=== PATIENT | male | born 1935 | race Caucasian/White ===

== ENCOUNTER → 2017-12-04 | Outpatient (CLI) | payer MEDICARE ==
[~2017-12-04] MED LIST: AMINOPHYLLINE 250 MG/10 ML VIAL IV ONE; REGADENOSON 0.4 MG/5 ML SYRINGE IV ONE
--- NOTE | 2017-12-04 12:26 | ECHOF ---
Referral Reason:R07.9 Chest pain MEASUREMENTS -------- HEIGHT: 180.3 cm WEIGHT: 62.1 kg BP: IVSd: 1.1 cm (0.6 - 1.1) LVIDd: 5.3 cm (3.9 - 5.3) LVPWd: 1.2 cm (0.6 - 1.1) IVSs: 2.0 cm LVIDs: 3.5 cm LVPWs: 1.7 cm Ao Diam: 3.2 cm (2.0 - 3.7) AV Cusp: 1.4 cm (1.5 - 2.6) LA Diam: 2.7 cm (2.7 - 3.8) MV EXCURSION: 11.800 mm (> 18.000) MV EF SLOPE: 47 mm/s (70 - 150) EPSS: 0.3 cm MV E Casimiro: 0.89 m/s MV DecT: 213 ms MV A Casimiro: 1.10 m/s MV E/A Ratio: 0.81 AV maxP.29 mmHg AV meanP.74 mmHg AR PHT: 718 ms RAP: 5.00 mmHg RVSP: 8.03 mmHg FINDINGS -------- Sinus rhythm. This was a technically difficult study with suboptimal views. The left ventricular size is normal. There is borderline concentric left ventricular hypertrophy. Overall left ventricular systolic function is mildly impaired with, an EF between 45 - 50 %. The right ventricle is normal in size and function. The left atrium is normal in size. The right atrium is normal in size. Lumason used Aortic valve is trileaflet and is moderately thickened. There is mild to moderate aortic regurgitat ion. Mild to moderate aortic stenosis with peak/mean pressure gradient of 21.29mmHg / 13.74mmHg , The mitral valve leaflets are mildly thickened. Mild mitral annular calcification present. Mild m itral regurgitation is present. Mild tricuspid regurgitation present. The right ventricular systolic pressure, as measured by Doppl er, is 8.03mmHg. Pulmonic valve appears structurally normal. The aortic root size is normal. Normal inferior vena cava with normal inspiratory collapse consistent with estimated right atrial pre ssure of 5 mmHg. The pericardium is normal. CONCLUSIONS -------- 1. Sinus rhythm. 2. This was a technically difficult study with suboptimal views. 3. The left ventricular size is normal. 4. There is borderline concentric left ventricular hypertrophy. 5. The right ventricle is normal in size and function. 6. The left atrium is normal in size. 7. The right atrium is normal in size. 8. Lumason used 9. Aortic valve is trileaflet and is moderately thickened. 10. There is mild aortic regurgitation. 11. Mild to moderate aortic stenosis with peak/mean pressure gradient of 21.29mmHg / 13.74mmHg , 12. The mitral valve leaflets are mildly thickened. 13. Mild mitral annular calcification present. 14. Mild mitral regurgitation is present. 15. Mild tricuspid regurgitation present. 16. The right ventricular systolic pressure, as measured by Doppler, is 8.03mmHg. 17. Pulmonic valve appears structurally normal. 18. The aortic root size is normal. 19. Normal inferior vena cava with normal inspiratory collapse consistent with estimated right atrial pressure of 5 mmHg. 20. The pericardium is normal. SPECIALIST PHYSICIANS: Lisa Christy RDCS
--- NOTE | 2017-12-04 12:48 | EST ---
EXERCISE STRESS AGE: 82 SEX: M HT: 70" WT: 130 PROTOCOL: Lexiscan Cardiolite Stress Test HEART RATE REST: 74 BLOOD PRESSURE REST: 137/84 MAXIMUM HEART RATE ACHIEVED: 85 MAXIMUM BLOOD PRESSURE: 150/70 85% MPHR: 117 100% MPHR: 138 INDICATIONS: Chest pain. CLINICAL INFORMATION: Baseline EKG revealed normal sinus rhythm with inferolateral nonspecific ST and T-wave abnormality. Precordial ST-T wave abnormality was also noted and LVH by voltage criteria. With Lexiscan administration heart rate changed from 74-85 beats per minute blood pressure, blood pressure changed from 137/84 to 150/70, and then came back to baseline. Patient had a transient uncomfortable feeling. EKG showed more prominent ST changes, but these are considered inconclusive finding given the resting changes to begin with. By EKG criteria, this is a technically inconclusive stress test with more prominent ST-segment changes without clear-cut symptoms of angina. The nuclear scan results which are more pertinent, will be reported by the radiologist. LONI / JENNIFER: [id number] /
--- NOTE | 2017-12-04 12:53 | NM ---
EXAMINATION TYPE: NM stress lexiscan cardiolite DATE OF EXAM: 12/04/2017 COMPARISON: NONE HISTORY: Chest pain TECHNIQUE: After the intravenous administration of 10.28 mCi Tc 99m Sestamibi - Cardiolite resting S PECT images acquired 60 minutes post injection. The patient received 0.4mg Lexiscan, 25.8 mCi Tc 99m Sestamibi - Stress images obtained [address] injection FINDINGS: Review of stress and rest SPECT images demonstrates several areas of decreased radiopharmaceutical up take on stress and rest images to include the lateral wall, inferior wall, septum, there is some decr eased radiopharmaceutical uptake on stress imaging as compared to rest imaging along the apex and ant erolateral left ventricle. Gated analysis shows normal wall motion with an estimated left ventricular ejection fraction of 27 %. 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 Report relayed to referring clinician office at the time of interpretation.
== END | disposition home or self-care (01) ==
LOC: RADNMMAIN 07:56
PROVIDERS: ATTEND Internal Medicine
DX: R07.9 Chest pain, unspecified (principal)
CPT/HCPCS: 93017; 78452; C8929; A9500; J2785; Q9950; 93306

== ENCOUNTER → 2017-12-25 | Outpatient (CLI) | payer MEDICARE ==
[2017-12-25 09:24] LABS: HCT 39.9 % (39.0-53.0); HGB 13.3 gm/dL (13.0-17.5); MCH 31.4 pg (25.0-35.0); MCHC 33.4 g/dL (31.0-37.0); MCV 93.9 fL (80.0-100.0); Mean Platelet Volume 7.5; Platelet Count 143 k/uL (150-450); RBC 4.25 m/uL (4.30-5.90); RDW 13.8 % (11.5-15.5); WBC 6.1 k/uL (3.8-10.6)
[2017-12-25 09:40] LABS: Potassium 4.5 mmol/L (3.5-5.1)
== END | disposition home or self-care (01) ==
LOC: LABPAT 08:59
PROVIDERS: ATTEND Internal Medicine Interventional Cardiology
DX: Z01.812 Encounter for preprocedural laboratory examination (principal); I25.718 Atherosclerosis of autologous vein coronary artery bypass graft(s) with other forms of angina pectoris; I10 Essential (primary) hypertension
CPT/HCPCS: 36415; 80051; 82565; 82947; 84520; 85027

== ENCOUNTER 2018-01-06 06:08 | Day surgery (SDC) | payer MEDICARE ==
[2017-12-30 09:21] VITALS: BMI 18.6
[~2018-01-06 06:08] MED LIST changes: +ALPRAZolam 0.25 MG TAB PO PRN; +ALPRAZolam 0.5 MG TAB PO PRN; -AMINOPHYLLINE 250 MG/10 ML VIAL IV ONE; +ASPIRIN 325 MG TAB PO STA; +ATORVASTATIN 80 MG TAB PO STA; +NITROGLYCERIN SL TABS 0.4 MG TAB SUBLINGUAL PRN; -REGADENOSON 0.4 MG/5 ML SYRINGE IV ONE; +SODIUM CHLORIDE 0.9% 1,000 ML in EMPTY BAG 1 BAG IV ONE
[2018-01-06 06:38] VITALS: PULSE 72; TEMP 97.6
[2018-01-06 06:59] LABS: Basophils % (A) 0 %; Eosinophils # (A) 0.2 k/uL (0-0.7); Eosinophils % (A) 4 %; HCT 38.4 % (39.0-53.0); HGB 12.9 gm/dL (13.0-17.5); Lymphocytes # (A) 1.2 k/uL (1.0-4.8); Lymphocytes % (A) 18 %; MCH 30.9 pg (25.0-35.0); MCHC 33.5 g/dL (31.0-37.0); MCV 92.1 fL (80.0-100.0); Mean Platelet Volume 7.2; Monocytes # (A) 0.5 k/uL (0-1.0); Monocytes % (A) 7 %; Neutrophils # (A) 4.5 k/uL (1.3-7.7); Neutrophils % (A) 69 %; Platelet Count 161 k/uL (150-450); RBC 4.17 m/uL (4.30-5.90); RDW 13.4 % (11.5-15.5); WBC 6.5 k/uL (3.8-10.6)
[2018-01-06] MEDS ORDERED: SODIUM CHLORIDE 0.9% 1,000 ML IV ONE (07:25)
[2018-01-06] MEDS ORDERED: diphenhydrAMINE 50 MG/ML 1 ML VIAL IVP ONE (07:26)
[2018-01-06] MEDS ORDERED: LIDOCAINE 1% INJ 10MG/ML (20 ML MDV) SQ ONE (07:27)
[2018-01-06] MEDS ORDERED: IOPAMIDOL-370 100ML BTL INJ ONE ×2 (07:43→07:56)
[2018-01-06] MEDS ORDERED: RX INFO: IV CONTRAST WAS GIVEN 1 EACH MISC MISCELLANE PRN (08:29)
[2018-01-06] MEDS ORDERED: SODIUM CHLORIDE 0.9% 1,000 ML IV SCH (08:30)
--- NOTE | 2018-01-06 09:12 | CC ---
CARDIAC CATHETERIZATION REPORT DATE OF SERVICE: 01/06/2018 PROCEDURE: Left heart catheterization, selective coronary angiography, selective injection of bypass grafts. PERFORMED BY: Dr. Sully Triplett. Moderate conscious sedation time was 35 minutes. Patient was administered Benadryl and Versed and oxygen saturation, hemodynamics and EKG were monitored closely. CLINICAL INFORMATION: Mr. Sunil Pereira is an 82-year-old gentleman with a known history of hypertension, hypercholesterolemia and CAD. In 1993, he underwent aortocoronary bypass surgery with WONG to LAD and 3 separate vein grafts to the obtuse marginal branch of circumflex, PLV branch of circumflex and PDA branch of circumflex. In 2010, these vein grafts and WONG were patent and his [place] vessels were occluded. He was advised medical therapy. Because of increasing anginal symptoms and a positive stress test, he was advised coronary angiography. Risks, benefits, options, rationale were explained to the patient and family including his daughter. PROCEDURE NOTE: Under local anesthesia and strict aseptic precautions, a 6-Bulgarian introducer was placed in the right femoral artery. I used a standard left Radha catheter for selective coronary angiography of the left coronary artery and a Orquidea catheter for the right coronary artery. The same Orquidea catheter was used to perform selective coronary angiography of the obtuse marginal graft, PDA graft, and I used a AR1 catheter for the PLV graft. These were 3 grafts placed with circumflex branches. I used a Orquidea catheter for the WONG injection. LV pressures were checked with a pigtail catheter but LV gram was not performed. Manual pressure was used to secure hemostasis and patient was sent to the room in a stable condition. CARDIAC CATHETERIZATION FINDINGS: The left ventricle end-diastolic pressure was about 8 to 9 mmHg. There was a gradient of about 10 to 15 mmHg across aortic valve on a pullback gradient. CORONARY ANGIOGRAPHY FINDINGS: RIGHT CORONARY ARTERY: This vessel is totally occluded other than a conus branch that seems to go back and gives some collaterals to the LAD distribution. RCA is totally occluded. LEFT MAIN CORONARY ARTERY: This vessel is calcified and totally occluded without much antegrade flow. SAPHENOUS VEIN GRAFT TO THE OBTUSE MARGINAL BRANCH OF CIRCUMFLEX: This graft is widely patent at its origin, course and insertion site. Just beyond insertion there is a 90% stenosis within the obtuse marginal branch. Beyond the insertion the vessel is of fairly decent caliber. This appears to be the culprit lesion for ischemia based on his stress test. SAPHENOUS VEIN GRAFT TO THE PLV BRANCH OF CIRCUMFLEX: This graft is widely patent at its origin. The ostium seems to have about a 40% lesion. Body of the graft is very good. Distally, the insertion site is good and the PLV branch is of good caliber and distribution. The ostium of this PLV graft has about a 40% lesion, but the flow is good. SAPHENOUS VEIN GRAFT TO THE PDA BRANCH OF CIRCUMFLEX: This graft at its origin is free of significant disease. Body is free of significant disease. At the insertion site, there is about a 40% to 50% narrowing, but the flow is brisk. Overall, the blood flow to the PDA appears to be fairly decent. There are 2 branches after insertion site, the superior branch has good flow and the inferior branch has somewhat sluggish flow, but overall flow is acceptable. LEFT INTERNAL MAMMARY ARTERY GRAFT TO LAD: This graft is widely patent at its origin, course and insertion site and the entire LAD is opacified has mild diffuse disease. LEFT VENTRICULOGRAM: This was not performed. FINAL IMPRESSION: This patient has a total occlusion of his [place] vessels. There is a small conus branch of RCA that opacifies some branches of the LAD. The filling pressures are normal and there is a 10 to 15 mm gradient across aortic valve. The vein graft to the obtuse marginal has a 95% stenosis just beyond the insertion site. The vein graft to the PLV branch of circumflex is widely patent with good flow. The vein graft to the PDA branch of circumflex has some distal disease of 40% to 50% but overall flow is acceptable. The WONG to LAD is widely patent with some diffuse disease in LAD. RECOMMENDATIONS: One of the options in this elderly gentleman appears to be medical therapy. Since there is only one graft involved, we can pursue medical therapy as an option. The other option would be to do intervention of the vein graft to the obtuse marginal, which would be a percutaneous intervention and this would be associated with a high risk since the graft is 24 years old. This discussion will happen during his office visit in the next few days. Patient will be discharged later on today and I will discuss options of medical therapy versus PCI with the patient and family. He will be discharged later on today. MMODL / IJN: [id number] /
[2018-01-06 13:28] VITALS: RESP 18
[2018-01-06] MEDS ORDERED: NITROGLYCERIN SL TABS 0.4 MG TAB SUBLINGUAL STA (14:52)
[2018-01-06] MEDS ORDERED: amLODIPine 5 MG TAB PO STA (14:53)
[2018-01-06 16:16] VITALS: BP 158/72
== END 2018-01-06 16:05 | disposition home or self-care (01) ==
LOC: CATHCVL 06:08
PROVIDERS: ATTEND Internal Medicine Interventional Cardiology
DX: I25.710 Atherosclerosis of autologous vein coronary artery bypass graft(s) with unstable angina pectoris (principal); I25.82 Chronic total occlusion of coronary artery; R92.8 Other abnormal and inconclusive findings on diagnostic imaging of breast; E78.5 Hyperlipidemia, unspecified; I10 Essential (primary) hypertension; E78.00 Pure hypercholesterolemia, unspecified; I35.0 Nonrheumatic aortic (valve) stenosis; Z79.899 Other long term (current) drug therapy; Z79.82 Long term (current) use of aspirin; Z88.0 Allergy status to penicillin; Z95.1 Presence of aortocoronary bypass graft
CPT/HCPCS: 93458; 85025; C1894; C1769 ×2; J1200; J2001; Q9967

== ENCOUNTER → 2018-01-13 | Outpatient (CLI) | payer MEDICARE ==
[2018-01-13 12:37] LABS: Potassium 4.3 mmol/L (3.5-5.1)
== END | disposition home or self-care (01) ==
LOC: LABPAT 11:30
PROVIDERS: ATTEND Internal Medicine Interventional Cardiology
DX: Z01.812 Encounter for preprocedural laboratory examination (principal); I10 Essential (primary) hypertension; I25.718 Atherosclerosis of autologous vein coronary artery bypass graft(s) with other forms of angina pectoris
CPT/HCPCS: 80051; 82565; 84520

== ENCOUNTER 2018-01-27 07:57 | Day surgery (SDC) | payer MEDICARE ==
[2018-01-21 09:44] VITALS: BMI 19.6
[~2018-01-27 07:57] MED LIST changes: -NITROGLYCERIN SL TABS 0.4 MG TAB SUBLINGUAL PRN
[2018-01-27] MEDS ORDERED: LIDOCAINE 1% INJ 10MG/ML (20 ML MDV) ONE (09:08)
[2018-01-27] MEDS ORDERED: MIDAZOLAM 2 MG/2 ML VIAL ONE (09:10)
[2018-01-27] MEDS ORDERED: diphenhydrAMINE 50 MG/ML 1 ML VIAL ONE (09:10)
[2018-01-27] MEDS ORDERED: IV FLUID CONTINUATION 1,000 ML IV ONE (09:22)
[2018-01-27] MEDS ORDERED: MIDAZOLAM 2 MG/2 ML VIAL IVP ONE (09:39)
[2018-01-27] MEDS ORDERED: LIDOCAINE 1% INJ 10MG/ML (20 ML MDV) SQ ONE (09:40)
[2018-01-27] MEDS ORDERED: diphenhydrAMINE 50 MG/ML 1 ML VIAL IVP ONE (09:40)
[2018-01-27] MEDS ORDERED: NITROGLYCERIN SL TABS 0.4 MG TAB SUBLINGUAL ONE ×2 (09:46→09:47)
[2018-01-27] MEDS ORDERED: BIVALIRUDIN BOLUS 250 MG/50 ML IV ONE (09:51)
[2018-01-27] MEDS ORDERED: BIVALIRUDIN 250 MG in SODIUM CHLORIDE 0.9% 50 ML IV ONE (09:51)
[2018-01-27] MEDS ORDERED: IOPAMIDOL-370 100ML BTL INJ ONE ×2 (10:07→10:27)
[2018-01-27] MEDS ORDERED: NITROGLYCERIN 1000MCG/10ML SYRINGE INTRACORON ONE ×2 (10:15→10:20)
[2018-01-27] MEDS ORDERED: CLOPIDOGREL 75 MG TAB ONE (10:22)
[2018-01-27] MEDS ORDERED: CLOPIDOGREL 75 MG TAB PO ONE (10:27)
[2018-01-27] MEDS ORDERED: NITROGLYCERIN SL TABS 0.4 MG TAB SUBLINGUAL PRN (10:43)
[2018-01-27] MEDS ORDERED: MAG HYDROX/AL HYDROX/SIMETH 30 ML CUP PO PRN (10:43)
[2018-01-27] MEDS ORDERED: ATROPINE SULFATE 0.1 MG/ML 10ML SYRINGE IV PRN (10:43)
[2018-01-27] MEDS ORDERED: ZOLPIDEM 5 MG TAB PO PRN (10:43)
[2018-01-27] MEDS ORDERED: RX INFO: IV CONTRAST WAS GIVEN 1 EACH MISC MISCELLANE PRN (10:43)
[2018-01-27] MEDS: SODIUM CHLORIDE 0.9% 1,000 ML IV SCH ×2 (11:16→23:40)
--- NOTE | 2018-01-27 12:06 | PTCA ---
PERCUTANEOUSTRANS CORORONARY ANGIOGRAPHY DATE OF SERVICE: 01/27/2018. PROCEDURE: PTCA and stenting of circumflex marginal at the insertion site and beyond the vein graft. Drug-eluting stent was used. Moderate conscious sedation time was 45 minutes. The patient was administered a combination of Versed and Benadryl. His oxygen saturation, hemodynamics and EKG were monitored closely. CLINICAL INFORMATION: Mr. Sunil Pereira is an 82-year-old gentleman with a history of hypertension, hypercholesterolemia who underwent aortocoronary bypass surgery in 1993 with a WONG to LAD, vein graft to the circumflex obtuse marginal and another one to the posterolateral branch of circumflex and then PDA branch of circumflex. All 3 were separate vein grafts. Because of the abnormal stress test and increasing symptoms suggestive of angina, he underwent a cardiac cath that was performed by me on 01/06/2018 which revealed that the vein graft to the obtuse marginal had a 95% stenosis. The PLV graft was patent. The PDA graft had a moderate 40% to 50% lesion. WONG to LAD was patent with diffuse disease in the [place] vessel. A total occlusion of the [place] vessels was noted. He had a mild gradient of less than 15 mmHg across the aortic valve. He was advised intervention of the vein graft to the obtuse marginal and brought in for the procedure electively. PROCEDURE NOTE: Under local anesthesia and strict aseptic precautions, a 6-Tamazight introducer was placed in the right femoral artery. I used a left coronary bypass guide catheter to cannulate the vein graft to the obtuse marginal. A whisper wire was used to cross the lesion. Predilatation was performed using a 2.25 caliber 12 mm long NC Trek balloon initially and then I switched over to a 2.5 caliber NC Trek balloon of 12 mm length. Inflations up to 14 atmospheres were given. There was a modest improvement. However, there was still a tight area noted. I then deployed a 12 mm long 2.75 caliber Xience stent at 15 atmospheres. Excellent angiographic result was achieved without complication. Distal to the stented area, there was initially spasm which resolved with administration of nitroglycerin. Excellent angiographic result without complication was achieved. Patient received Angiomax bolus and infusion as per protocol. He received 600 mg of Plavix orally. The sheath was sutured and he was sent to the room in a stable condition. ASSESSMENT: From a pre-PTCA stenosis of 95% after stenting the residual stenosis is 0% with remarkable improvement in angiographic appearance and flow. There was no evident complication noted. LONI / MERCEDEZN: [id number] /
--- NOTE | 2018-01-27 12:12 | LTR ---
January 27, [address] Mustafa: Thank you for the opportunity to participate in the care of Mr. Pereira. This gentleman had an excellent angiographic result. I used a drug-eluting Xience stent of 2.75 caliber. Excellent angiographic result was achieved and I expect he will be discharged tomorrow if he remains stable. Thank you for your referral and please call for questions. With kindest regards. Sincerely yours, MD LONI Rodriguez / JENNIFER: [id number] /
[2018-01-27] MEDS: METOPROLOL TARTRATE 25 MG TAB PO SCH (12:23)
[2018-01-27] MEDS ORDERED: ATROPINE SULFATE 0.1 MG/ML 10ML SYRINGE ONE (12:58)
[2018-01-27] MEDS ORDERED: MORPHINE SULFATE 2 MG/ML SYRINGE IVP STA (13:26)
[2018-01-27] MEDS: NITROGLYCERIN SL TABS 0.4 MG TAB SUBLINGUAL PRN ×2 (13:30→23:10)
[2018-01-27] MEDS: ISOSORBIDE MONONITRATE ER 30 MG TAB.ER.24H PO SCH (17:03)
[2018-01-27] MEDS ORDERED: ATORVASTATIN 40 MG TAB PO SCH (21:00)
--- NOTE | 2018-01-27 21:30 | P.GSCN ---
History of Present Illness Consult date: 01/27/18 Reason for Consult: Urinary retention and inability to insert urethral catheter History of present illness: The patient is an 82 year old male with coronary artery disease who underwent PTCA with stent placement earlier today. The patient has been unable to void since the procedure. He has a history of chronic urinary retention and usually performs self-catheterization 4 times a day with a 16 Georgian catheter. He was unable to sit up in bed to perform self-catheterization after his coronary procedure. Attempts were made by the nurses to insert a catheter but this proved to be unsuccessful. I was asked to see the patient for the purpose of catheter placement. The patient is well known to me and was last seen by me approximately 1 month ago. He has a hypotonic bladder and has been unable to empty his bladder completely despite a previous TURP. As previously noted he usually performs self-catheterization 4 times a day without difficulty. Review of Systems - Constitutional Denies chills - Cardiovascular Denies chest pain, Denies shortness of breath - Gastrointestinal Denies abdominal pain - Genitourinary Reports as per HPI Past Medical History Past Medical History: Chest Pain / Angina, GERD/Reflux, Hyperlipidemia, Hypertension, Prostate Disorder Additional Past Medical History / Comment(s): self catheterization, constipation , states fell recently and scraped leg History of Any Multi-Drug Resistant Organisms: None Reported Past Surgical History: Coronary Bypass/CABG, Heart Catheterization, Prostate Surgery (TURP) Additional Past Surgical History / Comment(s): left endarterectomy, CABG 1994, heart cath 01/06/18 Past Anesthesia/Blood Transfusion Reactions: No Reported Reaction Past Psychological History: Depression Smoking Status: Never smoker Past Alcohol Use History: Rare Past Drug Use History: None Reported - Past Family History Father Family Medical History: Diabetes Mellitus Mother Family Medical History: No Reported History Medications and Allergies Home Medications Medication Instructions Recorded Confirmed Type Aspirin [Adult Low Dose Aspirin EC] 162 mg PO QAM 12/30/17 01/21/18 History Nitroglycerin Sl Tabs [Nitrostat] 0.4 mg SUBLINGUAL Q5M PRN 12/30/17 01/21/18 History Tamsulosin [Flomax] 0.4 mg PO QAM 12/30/17 01/21/18 History Magnesium(Dose Unknown) 1 tab PO DAILY 01/21/18 01/21/18 History Rosuvastatin Calcium [Crestor] 5 mg PO DAILY 01/21/18 01/21/18 History Ubidecarenone [Co Q-10] 200 mg PO DAILY 01/21/18 01/21/18 History Vitamin C(Dose Unknown) 1 tab PO DAILY 01/21/18 01/21/18 History Vitamin D3(Dose Unknown) 1 tab PO DAILY 01/21/18 01/21/18 History Isosorbide Mononitrate ER [Imdur] 30 mg PO DAILY 01/27/18 01/27/18 History Allergies Allergy/AdvReac Type Severity Reaction Status Date / Time Penicillins Allergy Unknown Verified 01/21/18 09:31 Surgical - Exam Vital Signs Temp Pulse Resp BP Pulse Ox 97.9 F 78 20 175/72 98 01/27/18 09:00 01/27/18 09:00 01/27/18 09:00 01/27/18 09:00 01/27/18 09:00 - General well developed, well nourished - Respiratory normal respiratory effort - Abdomen Abdomen: soft, non tender Hernia: none - Genitourinary normal penis with no external lesions, testicles non-tender A compression device was present in the right groin at the site of the angioplasty access. Assessment and Plan (1) Urinary retention with incomplete bladder emptying Narrative/Plan: Following my examination I was able to insert a 14 Georgian coud catheter through the urethra and into the bladder, although the it was initially not easily. There was blood present at the urethral meatus prior to the procedure and I suspect that the patient had some trauma within the prostatic urethra as he apparently had a Myrick catheter balloon inflated in this area during a previous catheter placement attempt. Relatively clear urine drained from the bladder. I would suggest leaving the catheter in place until after the weekend. The patient's daughters a nurse and can remove it Thursday morning. The patient will then resume intermittent catheterization 4 times a day. Current Visit: Yes Status: Acute Code(s): R33.9 - RETENTION OF URINE, UNSPECIFIED SNOMED Code(s): 567715674
[2018-01-27] MEDS ORDERED: amLODIPine 10 MG TAB PO STA (23:04)
[2018-01-28] MEDS: ACETAMINOPHEN TAB 325 MG TAB PO PRN ×2 (00:48→06:04)
[2018-01-28] MEDS ORDERED: risperiDONE 0.25 MG TAB PO STA (02:03)
[2018-01-28 02:38] LABS: Basophils % (A) 0 %; Eosinophils # (A) 0.1 k/uL (0-0.7); Eosinophils % (A) 1 %; HCT 40.8 % (39.0-53.0); HGB 13.5 gm/dL (13.0-17.5); Lymphocytes # (A) 0.9 k/uL (1.0-4.8); Lymphocytes % (A) 9 %; MCV 93.9 fL (80.0-100.0); Mean Platelet Volume 7.2; Monocytes # (A) 0.6 k/uL (0-1.0); Monocytes % (A) 7 %; Neutrophils % (A) 82 %; Platelet Count 155 k/uL (150-450); RBC 4.34 m/uL (4.30-5.90); RDW 13.5 % (11.5-15.5); WBC 9.8 k/uL (3.8-10.6)
[2018-01-28 02:53] LABS: Anion Gap 10 mmol/L; Blood Urea Nitrogen 26 mg/dL (9-20); Calcium 9.2 mg/dL (8.4-10.2); Carbon Dioxide 21 mmol/L (22-30); Chloride 108 mmol/L (98-107); Glucose 109 mg/dL (74-99); Potassium 4.3 mmol/L (3.5-5.1); Sodium 139 mmol/L (137-145)
[2018-01-28 06:53] LABS: Basophils % (A) 0 %; Eosinophils # (A) 0.1 k/uL (0-0.7); Eosinophils % (A) 1 %; HCT 39.3 % (39.0-53.0); HGB 13.2 gm/dL (13.0-17.5); Lymphocytes # (A) 0.8 k/uL (1.0-4.8); Lymphocytes % (A) 9 %; MCH 31.4 pg (25.0-35.0); MCHC 33.6 g/dL (31.0-37.0); MCV 93.3 fL (80.0-100.0); Mean Platelet Volume 7.7; Monocytes # (A) 0.5 k/uL (0-1.0); Monocytes % (A) 6 %; Neutrophils # (A) 7.5 k/uL (1.3-7.7); Neutrophils % (A) 84 %; Platelet Count 164 k/uL (150-450); RBC 4.21 m/uL (4.30-5.90); RDW 13.3 % (11.5-15.5)
[2018-01-28 07:54] VITALS: BP 137/72; PULSE 85; RESP 15; TEMP 97.1
[2018-01-28] MEDS: METOPROLOL TARTRATE 25 MG TAB PO SCH (07:55)
[2018-01-28] MEDS: ISOSORBIDE MONONITRATE ER 30 MG TAB.ER.24H PO SCH (07:55)
--- NOTE | 2018-01-28 08:04 | DS ---
DISCHARGE SUMMARY DATE OF ADMISSION: 01/27/2018. DATE OF DISCHARGE: 01/28/2018. DIAGNOSES: 1. Unstable angina. 2. Hypertension. 3. Hypercholesterolemia. 4. Dementia. Mr. Pereira was brought into the hospital for an elective PCI of a vein graft to the obtuse marginal branch of circumflex. He underwent aortocoronary bypass surgery in 1993 and recent cardiac cath from January 06 revealed that the vein graft to OM 1 had a significant lesion at isertion site and immediately after the insertion site into the obtuse marginal. His WONG and 2 other vein grafts were patent with fairly decent flow. The patient was brought in for the procedure electively. PCI of the vein graft was performed with excellent angiographic result. Postprocedure course was complicated by some oozing from the right groin area and patient also had some issues with urinary retention requiring a Myrick catheter after which he had pain and the blood pressure went up quite a bit. Blood pressure control was accomplished. The patient had some dementia, required some soft restraints through the night for an hour or so. However, this morning is quite lucid and he does not have a good memory of what happened in the night. According to the who was here with him, patient does have these issues at home from time to time. However, from a cardiac standpoint, he is asymptomatic. No chest pain. His right groin is clean and dry with a good pulse. It is quite soft. Hemoglobin, BUN, creatinine are good. EKG does not reveal any acute changes. I have advised them to resume most of the medications including a beta [place]. Patient will be discharged today and he has an appointment to see me on Thursday. Discharge instructions regarding activity, diet and medications were given. Physical exam revealed a blood pressure of 132/70, pulse rate is 80 per minute. There is no JVD or carotid bruit. S1, S2 heard normally with a short systolic murmur. Lungs are clear. Abdomen is soft. Right groin is clean and dry with a good pulse. Lower extremities reveal palpable pulses. No edema. Central nervous system grossly no focal deficits. Patient will be discharged today after okayed by Urology with regards to the Myrick catheter which has been placed yesterday. The patient usually does self cathing at home. We will call and check with Dr. Toth if the patient can be discharged without the Myrick and he can do the self cath that he was doing at home or should he leave the Myrick on until he sees him early next week. This will be clarified by a phone call to Dr. Toth by the nurses. I saw the patient, talked to the gave them discharge instructions myself and importance of dual antiplatelet therapy. LONI / JENNIFER: [id number] / MTDD
[2018-01-28] MEDS ORDERED: CLOPIDOGREL 75 MG TAB PO SCH (09:00)
[2018-01-28] MEDS ORDERED: ASPIRIN 81 MG PO SCH ×2 (09:00)
[2018-01-28] MEDS ORDERED: TAMSULOSIN 0.4 MG CAP.ER.24H PO SCH ×2 (09:00→21:00)
[2018-01-28] MEDS ORDERED: MAGNESIUM OXIDE 400 MG TAB PO SCH (09:00)
== END 2018-01-28 10:06 | disposition home or self-care (01) ==
LOC: CATHCVL 07:57 → 6SEL 10:20 → CATHCVL 01-28 10:06
PROVIDERS: ATTEND Internal Medicine Interventional Cardiology
DX: I25.719 Atherosclerosis of autologous vein coronary artery bypass graft(s) with unspecified angina pectoris (principal); I25.119 Atherosclerotic heart disease of native coronary artery with unspecified angina pectoris; I25.82 Chronic total occlusion of coronary artery; I35.0 Nonrheumatic aortic (valve) stenosis; I10 Essential (primary) hypertension; E78.00 Pure hypercholesterolemia, unspecified; Z95.1 Presence of aortocoronary bypass graft; N31.2 Flaccid neuropathic bladder, not elsewhere classified; Z95.5 Presence of coronary angioplasty implant and graft; E78.5 Hyperlipidemia, unspecified; Z88.0 Allergy status to penicillin; Z79.82 Long term (current) use of aspirin; K21.9 Gastro-esophageal reflux disease without esophagitis; R33.9 Retention of urine, unspecified; Z90.79 Acquired absence of other genital organ(s); Z79.899 Other long term (current) drug therapy
CPT/HCPCS: 80048; 85025; C9604; C1769 ×4; C1887; C1725 ×2; C1894; C1874; J2250; J1200; J2001; J2270; J0583; Q9967

== ENCOUNTER → 2018-07-23 | Outpatient (CLI) | payer MEDICARE ==
[2018-07-23 14:35] LABS: Basophils % (A) 0 %; Eosinophils # (A) 0.1 k/uL (0-0.7); Eosinophils % (A) 2 %; HCT 35.9 % (39.0-53.0); HGB 11.8 gm/dL (13.0-17.5); Lymphocytes # (A) 1.1 k/uL (1.0-4.8); Lymphocytes % (A) 18 %; MCH 31.9 pg (25.0-35.0); MCV 96.5 fL (80.0-100.0); Mean Platelet Volume 7.4; Monocytes # (A) 0.5 k/uL (0-1.0); Monocytes % (A) 9 %; Neutrophils # (A) 3.9 k/uL (1.3-7.7); Neutrophils % (A) 68 %; Platelet Count 150 k/uL (150-450); RBC 3.72 m/uL (4.30-5.90); RDW 13.6 % (11.5-15.5); WBC 5.8 k/uL (3.8-10.6)
[2018-07-23 18:54] LABS: Albumin 4.1 g/dL (3.80-4.90); Albumin/Globulin Ratio 1.86 (1.60-3.17); Anion Gap 6.9 mmol/L (4.00-12.00); Calcium 9.2 mg/dL (8.7-10.3); Carbon Dioxide 25.1 mmol/L (21.6-31.8); Globulin 2.2 g/dL (1.6-3.3); LDL Cholesterol,Calculated 49.2 mg/dL (0.0-131.0); Potassium 5.8 mmol/L (3.5-5.5); Total Bilirubin 0.7 mg/dL (0.3-1.2); Total Protein 6.3 g/dL (6.2-8.2); VLDL Calculation 11.8 mg/dL (5.00-40.00)
[2018-07-23 19:02] LABS: T4, Free (Free Thyroxine) 1.2 ng/dL (0.80-1.80)
[2018-07-23 22:30] LABS: Hemoglobin A1C 6.3 % (4.0-6.0)
== END ==
LOC: LABWHC1 12:19
PROVIDERS: ATTEND Internal Medicine Geriatric Medicine
DX: I25.799 Atherosclerosis of other coronary artery bypass graft(s) with unspecified angina pectoris (principal); R73.9 Hyperglycemia, unspecified; R00.1 Bradycardia, unspecified
CPT/HCPCS: 36415; 80053; 80061; 83036; 84439; 84443; 85025

== ENCOUNTER 2018-09-26 19:56 | Inpatient (IN) | payer MEDICARE ==
[2018-09-26] MEDS ORDERED: ASPIRIN 81 MG PO STA (20:23)
--- NOTE | 2018-09-26 20:31 | ED ---
General Adult HPI - General Source: patient Mode of arrival: wheelchair Limitations: no limitations <Grabiel Hernandez D - Last Filed: 09/26/18 20:55> <Wanda Vasquez P - Last Filed: 09/26/18 22:11> - General Chief complaint: Chest Pain Stated complaint: CP Time Seen by Provider: 09/26/18 20:05 - History of Present Illness Initial comments: Dictation was produced using [email or web address] dictation software. please excuse any grammatical, word or spelling errors. Chief Complaint: 82-year-old male with multiple comorbidities presents with chief complaint of chest pain. History of Present Illness: 82-year-old male presents chief complaint chest pain. Patient states he was having dinner when he began having these symptoms. Patient takes that he might have eaten too much. States the pain is substernal and sharp. States that he took 2 sublingual nitroglycerin with improvement of his symptoms. He states his symptoms lasted for several minutes. Patient denies any exacerbating or mitigating maneuvers. Patient has positive cardiac history. Recently patient was admitted to the hospital where he had cardiac catheterization and intervention performed. Currently he reports being asymp tomatic. The ROS documented in this emergency department record has been reviewed and confirmed by me. Those systems with pertinent positive or negative responses have been documented in the HPI. All other systems are other negative and/or noncontributory. PHYSICAL EXAM: General Impression: Alert and oriented x3, not in acute distress HEENT: Normocephalic atraumatic, extra-ocular movements intact, pupils equal and reactive to light bilaterally, mucous membranes moist. Cardiovascular: Heart regular rate and rhythm, S1&S2 audible, no murmurs, rubs or gallops Chest: Lungs clear to auscultation bilaterally, no rhonchi, no wheeze, no rales Abdomen: Bowel sounds present, abdomen soft, non-tender, non-distended, no organomegaly Musculoskeletal: Pulses present and equal in all extremities, no peripheral edema Motor: no focal deficits noted Neurological: CN II-XII grossly intact, no focal motor or sensory deficits noted Skin: Intact with no visualized rashes Psych: Normal affect and mood ED course: 82-year-old male presents with chief complaint of chest pain. Patient's HPI sounds slightly atypical. All signs upon arrival are within acceptable limits. EKG is worrisome with multiple ST depressions present in the precordial leads. EKG was compared to EKG from November 27 of this year with no changes. Patient is asymptomatic at this time. Patient care is signed out to Dr. Vasquez. EKG interpretation: Ventricular rate 85, sinus rhythm,. Interval 194, care is 86, QTC 456. ST depressions in precordial leads. (Grabiel Hernandez) - Related Data Home Medications Medication Instructions Recorded Confirmed Aspirin [Adult Low Dose Aspirin EC] 81 mg PO DAILY 12/30/17 09/26/18 Magnesium(Dose Unknown) 1 tab PO DAILY 01/21/18 09/26/18 Ubidecarenone [Co Q-10] 200 mg PO DAILY 01/21/18 09/26/18 Vitamin C(Dose Unknown) 1 tab PO DAILY 01/21/18 09/26/18 Vitamin D3(Dose Unknown) 1 tab PO DAILY 01/21/18 09/26/18 Isosorbide Mononitrate ER [Imdur] 30 mg PO DAILY 01/27/18 09/26/18 Metoprolol Succinate (ER) [Toprol 25 mg PO DAILY 06/29/18 09/26/18 XL] Esomeprazole Magnesium [NexIUM] 40 mg PO DAILY 09/26/18 09/26/18 Previous Rx's Medication Instructions Recorded Atorvastatin [Lipitor] 40 mg PO HS #90 tab 01/28/18 Clopidogrel [Plavix] 75 mg PO DAILY #90 tab 01/28/18 Nitroglycerin Sl Tabs [Nitrostat] 0.4 mg SUBLINGUAL Q5M PRN #25 tab 01/28/18 Tamsulosin [Flomax] 0.4 mg PO HS #0 01/28/18 Lisinopril [Zestril] 5 mg PO DAILY #30 tab 07/01/18 Ranolazine [Ranexa] 500 mg PO BID #60 tab 07/01/18 Spironolactone [Aldactone] 25 mg PO DAILY #30 tab 07/01/18 Allergies Allergy/AdvReac Type Severity Reaction Status Date / Time Penicillins Allergy Rash/Hives Verified 09/26/18 21:04 Review of Systems ROS Other: All systems not noted in ROS Statement are negative. <Grabiel Hernandez - Last Filed: 09/26/18 20:55> ROS Other: All systems not noted in ROS Statement are negative. <Wanda Vasquez - Last Filed: 09/26/18 22:11> ROS Statement: Those systems with pertinent positive or pertinent negative responses have been documented in the HPI. 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 History of Any Multi-Drug Resistant Organisms: None Reported Past Surgical History: Coronary Bypass/CABG, Heart Catheterization, Heart Catheterization With Stent, Prostate Surgery Additional Past Surgical History / Comment(s): left endarterectomy, CABG 1994, 2017 Past Anesthesia/Blood Transfusion Reactions: No Reported Reaction Date of Last Stent Placement:: 2017 Past Psychological History: Depression Smoking Status: Never smoker Past Alcohol Use History: Rare Past Drug Use History: None Reported - Past Family History Father Family Medical History: Diabetes Mellitus Mother Additional Family Medical History / Comment(s): heart problems <Grabiel Hernandez - Last Filed: 09/26/18 20:55> General Exam Limitations: no limitations <Grabiel Hernandez - Last Filed: 09/26/18 20:55> Course Vital Signs 09/26/18 09/26/18 19:57 22:02 Temperature 98.1 F Pulse Rate 94 76 Respiratory 18 16 Rate Blood Pressure 124/98 139/77 O2 Sat by Pulse 100 99 Oximetry Medical Decision Making - Lab Data Result diagrams: 09/26/18 20:35 <Grabiel Hernandez - Last Filed: 09/26/18 20:55> - Lab Data Result diagrams: 09/26/18 20:35 09/26/18 20:35 <Wanda Vaqsuez - Last Filed: 09/26/18 22:11> - Medical Decision Making to care was signed out to me by Dr. MACIAS. This is an 82-year-old woman who presented with chest pain which developed after dinner he was concerned he may have eaten too much however EKGs concerning for ischemia as there are ST depressions. At the time of sign out a cardiac workup was pending. Chest x-ray was unremarkable. Labs did result with a mildly elevated troponin. Patient then developed recurrent chest pain radiating to his right chest and right shoulder. Repeat EKG obtained at 2146, rate is 85 rhythm is sinus with a first-degree AV block, there is a normal axis, there is prolonged at 220, QRS is 86 QTc is 442 there are T-wave inversions and ST depression in V2-5 ST elevation of only 1 mm in aVR. Again this EKG for ischemia but no acute infarct. Heparin was ordered, however patient is on aspirin and Plavix at home for a bolus was held. Nitropaste was ordered. Patient care discussed with Dr. Hennessy, patient to be admitted per ACS protocol for NSTEMI (Wanda Vasquez) - Lab Data Lab Results 09/26/18 09/26/18 09/26/18 Range/Units 20:35 20:35 20:35 WBC 7.6 (3.8-10.6) k/uL RBC 3.28 L (4.30-5.90) m/uL Hgb 10.6 L (13.0-17.5) gm/dL Hct 31.5 L (39.0-53.0) % MCV 96.1 (80.0-100.0) fL MCH 32.4 (25.0-35.0) pg MCHC 33.7 (31.0-37.0) g/dL RDW 14.2 (11.5-15.5) % Plt Count 164 (150-450) k/uL Neutrophils % 83 % Lymphocytes % 10 % Monocytes % 5 % Eosinophils % 1 % Basophils % 0 % Neutrophils # 6.3 (1.3-7.7) k/uL Lymphocytes # 0.7 L (1.0-4.8) k/uL Monocytes # 0.3 (0-1.0) k/uL Eosinophils # 0.1 (0-0.7) k/uL Basophils # 0.0 (0-0.2) k/uL PT 10.6 (9.0-12.0) sec INR 1.0 (<1.2) APTT 21.5 L (22.0-30.0) sec Sodium 142 (137-145) mmol/L Potassium 4.5 (3.5-5.1) mmol/L Chloride 110 H (98-107) mmol/L Carbon Dioxide 21 L (22-30) mmol/L Anion Gap 11 mmol/L BUN 53 H (9-20) mg/dL Creatinine 1.51 H (0.66-1.25) mg/dL Est GFR (CKD-EPI)AfAm 49 (>60 ml/min/1.73 sqM) Est GFR (CKD-EPI)NonAf 43 (>60 ml/min/1.73 sqM) Glucose 188 H (74-99) mg/dL Calcium 9.5 (8.4-10.2) mg/dL Magnesium 2.0 (1.6-2.3) mg/dL Total Bilirubin 0.5 (0.2-1.3) mg/dL AST 46 (17-59) U/L ALT 53 (21-72) U/L Alkaline Phosphatase 56 (38-126) U/L Troponin I (0.000-0.034) ng/mL Total Protein 6.7 (6.3-8.2) g/dL Albumin 4.0 (3.5-5.0) g/dL Lipase 190 (23-300) U/L 09/26/18 Range/Units 20:35 WBC (3.8-10.6) k/uL RBC (4.30-5.90) m/uL Hgb (13.0-17.5) gm/dL Hct (39.0-53.0) % MCV (80.0-100.0) fL MCH (25.0-35.0) pg MCHC (31.0-37.0) g/dL RDW (11.5-15.5) % Plt Count (150-450) k/uL Neutrophils % % Lymphocytes % % Monocytes % % Eosinophils % % Basophils % % Neutrophils # (1.3-7.7) k/uL Lymphocytes # (1.0-4.8) k/uL Monocytes # (0-1.0) k/uL Eosinophils # (0-0.7) k/uL Basophils # (0-0.2) k/uL PT (9.0-12.0) sec INR (<1.2) APTT (22.0-30.0) sec Sodium (137-145) mmol/L Potassium (3.5-5.1) mmol/L Chloride (98-107) mmol/L Carbon Dioxide (22-30) mmol/L Anion Gap mmol/L BUN (9-20) mg/dL Creatinine (0.66-1.25) mg/dL Est GFR (CKD-EPI)AfAm (>60 ml/min/1.73 sqM) Est GFR (CKD-EPI)NonAf (>60 ml/min/1.73 sqM) Glucose (74-99) mg/dL Calcium (8.4-10.2) mg/dL Magnesium (1.6-2.3) mg/dL Total Bilirubin (0.2-1.3) mg/dL AST (17-59) U/L ALT (21-72) U/L Alkaline Phosphatase (38-126) U/L Troponin I 0.043 H* (0.000-0.034) ng/mL Total Protein (6.3-8.2) g/dL Albumin (3.5-5.0) g/dL Lipase (23-300) U/L Disposition <Grabiel Hernandez D - Last Filed: 09/26/18 20:55> <Wanda Vasquez P - Last Filed: 09/26/18 22:11> Clinical Impression: NSTEMI (non-ST elevated myocardial infarction) Disposition: ADMITTED IP TO THIS HOSP Condition: Serious Referrals: Khurram Mustafa MD [Primary Care Provider] - 1-2 days
[2018-09-26 20:49] LABS: Basophils % (A) 0 %; Eosinophils # (A) 0.1 k/uL (0-0.7); Eosinophils % (A) 1 %; HCT 31.5 % (39.0-53.0); HGB 10.6 gm/dL (13.0-17.5); Lymphocytes # (A) 0.7 k/uL (1.0-4.8); Lymphocytes % (A) 10 %; MCH 32.4 pg (25.0-35.0); MCHC 33.7 g/dL (31.0-37.0); MCV 96.1 fL (80.0-100.0); Mean Platelet Volume 7.6; Monocytes # (A) 0.3 k/uL (0-1.0); Monocytes % (A) 5 %; Neutrophils # (A) 6.3 k/uL (1.3-7.7); Neutrophils % (A) 83 %; Platelet Count 164 k/uL (150-450); RBC 3.28 m/uL (4.30-5.90); RDW 14.2 % (11.5-15.5); WBC 7.6 k/uL (3.8-10.6)
[2018-09-26 21:10] LABS: Prothrombin Time 10.6 sec (9.0-12.0)
--- NOTE | 2018-09-26 21:17 | XR ---
EXAMINATION TYPE: XR abdomen 1V DATE OF EXAM: 09/26/2018 COMPARISON: NONE HISTORY: Short of breath TECHNIQUE: 2 views FINDINGS: 2 views supine and show no sign of intestinal obstruction or pneumoperitoneum. Fecal patter n is normal. There is no evidence of a mass. There are no pathologic calcifications over the kidneys. Lung bases are clear. IMPRESSION: Nonacute abdomen.
--- NOTE | 2018-09-26 21:18 | XR ---
EXAMINATION TYPE: XR chest 2V DATE OF EXAM: 09/26/2018 COMPARISON: 06/29/2018 HISTORY: Short of breath TECHNIQUE: Frontal and lateral views of the chest are obtained. FINDINGS: There is no heart failure nor confluent pneumonic infiltrate. There are sternal wires. Cos tophrenic angles are clear. Bony thorax is intact. IMPRESSION: No active cardiopulmonary disease. Normal heart.
[2018-09-26 21:22] LABS: Calcium 9.5 mg/dL (8.4-10.2); Potassium 4.5 mmol/L (3.5-5.1); Total Bilirubin 0.5 mg/dL (0.2-1.3); Total Protein 6.7 g/dL (6.3-8.2)
[2018-09-26 21:39] LABS: Partial Thromboplastin Time 21.5 sec (22.0-30.0)
[2018-09-26] MEDS ORDERED: HEPARIN SODIUM,PORCINE 5,000 UNIT/ML 1 ML VIAL IV PRN (21:39)
[2018-09-26] MEDS ORDERED: NITROGLYCERIN OINT 1 INCH/GM PACKET TOPICAL STA (21:44)
[2018-09-26] MEDS: HEPARIN SOD,PORK IN 0.45% NACL 25,000 UNIT in 0.45% NACL 1 250ML.BAG IV SCH (21:59)
[2018-09-26] MEDS ORDERED: PANTOPRAZOLE 40 MG TABLET PO STA (22:25)
[2018-09-26] MEDS: ATORVASTATIN 40 MG TAB PO SCH ×2 (22:43→22:44)
[2018-09-26] MEDS: METOPROLOL TARTRATE 25 MG TAB PO SCH (22:44)
[2018-09-27 06:11] VITALS: RESP 18
[2018-09-27 06:27] LABS: Basophils % (A) 0 %; Eosinophils # (A) 0.1 k/uL (0-0.7); Eosinophils % (A) 1 %; HCT 32.1 % (39.0-53.0); HGB 10.7 gm/dL (13.0-17.5); Lymphocytes # (A) 1.1 k/uL (1.0-4.8); Lymphocytes % (A) 12 %; MCH 32.3 pg (25.0-35.0); MCHC 33.4 g/dL (31.0-37.0); MCV 96.7 fL (80.0-100.0); Mean Platelet Volume 7.7; Monocytes # (A) 0.4 k/uL (0-1.0); Monocytes % (A) 5 %; Neutrophils # (A) 7.5 k/uL (1.3-7.7); Neutrophils % (A) 81 %; Platelet Count 156 k/uL (150-450); RBC 3.32 m/uL (4.30-5.90); RDW 14.3 % (11.5-15.5); WBC 9.3 k/uL (3.8-10.6)
[2018-09-27 06:41] LABS: Cholesterol 100 mg/dL (<200); HDL Cholesterol 44 mg/dL (40-60); LDL Cholesterol,Calculated 41 mg/dL (0-99); Triglycerides 75 mg/dL (<150)
[2018-09-27] MEDS: NITROGLYCERIN OINT 1 INCH/GM PACKET TOPICAL SCH ×4 (06:56→17:57)
[2018-09-27] MEDS: LISINOPRIL 5 MG TAB PO SCH (07:40)
[2018-09-27] MEDS: METOPROLOL TARTRATE 25 MG TAB PO SCH ×2 (07:40→20:10)
[2018-09-27] MEDS: SPIRONOLACTONE 25 MG TAB PO SCH (07:40)
[2018-09-27] MEDS: ASPIRIN 325 MG TAB PO SCH (07:40)
[2018-09-27] MEDS ORDERED: ALPRAZolam 0.25 MG TAB PO PRN (08:05)
[2018-09-27] MEDS ORDERED: SODIUM CHLORIDE 0.9% 1,000 ML in EMPTY BAG 1 BAG IV ONE (08:05)
[2018-09-27] MEDS ORDERED: ALPRAZolam 0.5 MG TAB PO PRN (08:05)
[2018-09-27] MEDS ORDERED: ATORVASTATIN 80 MG TAB PO STA (08:05)
[2018-09-27] MEDS ORDERED: NITROGLYCERIN SL TABS 0.4 MG TAB SUBLINGUAL PRN (08:05)
--- NOTE | 2018-09-27 08:37 | CONS ---
CONSULTATION CHIEF COMPLAINT: Chest pain. Sunil is an 83-year-old gentleman with history of coronary artery disease, status post CABG, status post cardiac catheterization and angioplasty of the venous graft in June of this year who presented to hospital complaining of chest pain. This chest discomfort started around 6:30 yesterday evening, moderate to severe intensity, precordial, radiated down both his arms, got worse with activity. He ruled in for myocardial infarction. The troponin this morning was 4.5. EKG showed sinus rhythm with ST-T wave changes in the precordial leads. At the time of my evaluation this morning, he is pain free, hemodynamically stable and in no apparent distress. His tropes are elevated at 0.04 and 4.5. Potassium is 4.5. BUN is 53, creatinine is 1.5. It was 1.4 on discharge 2 months ago. Hemoglobin is low at 10.7. Given known coronary artery disease, recent intervention and [id number] elevation OR, I advised the patient to undergo cardiac catheterization for further evaluation. He had been explained of risks, benefits and alternatives, understood and accepted. The patient had an echocardiogram at last admission that revealed moderately impaired LV function with an ejection fraction of 35% to 40% PAST MEDICAL HISTORY: Past medical history is significant for coronary artery disease, status post CABG, status post angioplasty of venous graft to the RCA, hypertension, dyslipidemia. CURRENT MEDICATIONS: Current medications include Plavix, Lipitor, aspirin, Nexium, Imdur, lisinopril, Toprol, Ranexa, Aldactone, Co Q10, and Flomax. ALLERGIES: Allergic to PENICILLIN. FAMILY HISTORY: Family history is negative for premature coronary artery disease. SOCIAL HISTORY: Social history is negative for smoking, EtOH abuse or drug abuse. REVIEW OF SYSTEMS: HEENT is unremarkable. CARDIAC: As described above. RESPIRATORY: Negative. GI: Negative. GENITOURINARY: Negative. ALLERGY/IMMUNOLOGY: Negative. SKIN: Negative. MUSCULOSKELETAL: Negative. ENDOCRINE: Negative. HEMATOLOGICAL: Negative. DERM: Negative. CONSTITUTIONAL: Negative. ONCOLOGICAL: Negative. Rest of the system review is not relevant. PHYSICAL EXAMINATION: On exam, comfortable at rest. Vital signs are stable. There is no jugular venous distention. Carotid upstroke is normal. There is no bruit. Chest exam reveals good air entry bilaterally. Heart exam reveals first and second heart sounds. No gallop. No murmur. Abdomen is soft, nontender. Examination of extremities did not reveal edema. Peripheral pulses are felt. LABS: Labs show a platelet count of 156, hemoglobin is 10.7, potassium is 4.5. BUN is 53, it was 52 at the time of discharge last time. ASSESSMENT: 1. Acute non ST-segment elevation myocardial infarction. 2. Renal insufficiency. 3. Coronary artery disease, status post coronary artery bypass grafting. PLAN: The patient will continue intravenous heparin, aspirin, Plavix. I will schedule him for cardiac catheterization. I will get input from Nephrology prior. MMODL / IJN: [id number] /
[2018-09-27] MEDS: ALPRAZolam 0.25 MG TAB PO PRN ×2 (12:12→20:10)
--- NOTE | 2018-09-27 15:15 | P.PN ---
Progress Note - Text At the bedside with Dr. Triplett to see the patient. His and daughter are present as well. Currently he is chest pain free with no shortness of breath and is complaining of feeling tired. We have discussed at length the options of cardiac catheterization versus medical therapy. The patient and the family would like to pursue medical therapy at this time. Should he develop symptoms of angina we will consider coronary angiography.
--- NOTE | 2018-09-27 19:10 | P.HPIM ---
History of Present Illness H&P Date: 09/27/18 Chief Complaint: Unstable angina, non-ST MS, CAD, advanced dementia, hyperte nsion, hyperlipi 83-year-old male one of my office patient who was hospitalized recently for acute MS and had an angioplasty and stent placement [address] MARILEE gaston. Patient was titrated on medical management and doing well until yesterday when he developed to have midsternal chest pain along with worsening shortness of breath with minimal exertion symptoms become quite bit worse along with lightheadedness and dizziness with worsening palpitation cold sweat along with nausea feeling ended up coming to the emergency department at [facility] where was seen and evaluated his troponin was elevated and was increased higher was diagnosed with non-ST elevation myocardial infarction started on nitro heparin drip and admit patient to the hospital with above problem. Review his last echocardiogram with ejection fraction of 35-40 percentile and a very high mortality patient has long discussion with the family apparently chosen not to go for heart cath at this point and to continue to maximize medical management controlling his symptoms which agreeable by cardioval pitts at this point. Review of Systems CONSTITUTIONAL: Well-developed no acute respiratory distress. On the confused EYES: No icterus sclerae, no conjunctivitis. EARS, NOSE, MOUTH, THROAT, and FACE: No sore throat, lymphadenopathy, carotid bruits or deformity. RESPIRATORY: Positive shortness of breath cough wheezes. CARDIOVASCULAR: Positive chest pain, angina, palpitation, lightheadedness and dizziness. GASTROINTESTINAL: No Abd pain, Nausea or vomiting, no Diarrhea or constipation, No GI Bleed, no distention or masses. GENITOURINARY: Negative for Hematuria or UTI, no kidney stones. INTEGUMENT/BREAST: Negative for any muscular injury with mild osteoarthritis.. HEMATOLOGIC/LYMPHATIC: Negative for bleed or purpura. MUSCULOSKELTAL: Negative for Myalgia or arthralgia. NEURLOGICAL: No LOC, Sz or syncope, blurred vision dizziness or abnormality.. Worsening confusion and dementia. BEHAVIORAL/PSYCH: Negative. ENDOCRINE: Negative. 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 History of Any Multi-Drug Resistant Organisms: None Reported Past Surgical History: Coronary Bypass/CABG, Heart Catheterization, Heart Catheterization With Stent, Prostate Surgery Additional Past Surgical History / Comment(s): left endarterectomy, CABG 1994, 2017 Past Anesthesia/Blood Transfusion Reactions: No Reported Reaction Date of Last Stent Placement:: 2017 Past Psychological History: Depression Smoking Status: Never smoker Past Alcohol Use History: Rare Past Drug Use History: None Reported - Past Family History Father Family Medical History: Diabetes Mellitus Mother Additional Family Medical History / Comment(s): heart problems Medications and Allergies Home Medications Medication Instructions Recorded Confirmed Type Aspirin [Adult Low Dose Aspirin EC] 81 mg PO DAILY 12/30/17 09/26/18 History Magnesium(Dose Unknown) 1 tab PO DAILY 01/21/18 09/26/18 History Ubidecarenone [Co Q-10] 200 mg PO DAILY 01/21/18 09/26/18 History Vitamin C(Dose Unknown) 1 tab PO DAILY 01/21/18 09/26/18 History Vitamin D3(Dose Unknown) 1 tab PO DAILY 01/21/18 09/26/18 History Isosorbide Mononitrate ER [Imdur] 30 mg PO DAILY 01/27/18 09/26/18 History Atorvastatin [Lipitor] 40 mg PO HS #90 tab 01/28/18 09/26/18 Rx Clopidogrel [Plavix] 75 mg PO DAILY #90 tab 01/28/18 09/26/18 Rx Nitroglycerin Sl Tabs [Nitrostat] 0.4 mg SUBLINGUAL Q5M PRN #25 tab 01/28/18 06/29/18 Rx Tamsulosin [Flomax] 0.4 mg PO HS #0 01/28/18 09/26/18 Rx Metoprolol Succinate (ER) [Toprol 25 mg PO DAILY 06/29/18 09/26/18 History XL] Lisinopril [Zestril] 5 mg PO DAILY #30 tab 07/01/18 09/26/18 Rx Ranolazine [Ranexa] 500 mg PO BID #60 tab 07/01/18 09/26/18 Rx Spironolactone [Aldactone] 25 mg PO DAILY #30 tab 07/01/18 09/26/18 Rx Esomeprazole Magnesium [NexIUM] 40 mg PO DAILY 09/26/18 09/26/18 History Rivastigmine Tartrate [Exelon] 3 mg PO BID 09/27/18 09/27/18 History Allergies Allergy/AdvReac Type Severity Reaction Status Date / Time Penicillins Allergy Rash/Hives Verified 09/26/18 21:04 Physical Exam Vitals: Vital Signs Temp Pulse Pulse Resp BP BP Pulse Ox 09/27/18 07:36 97.5 F L 85 18 133/71 99 09/27/18 04:00 97.4 F L 96 18 140/69 100 09/26/18 23:30 97.5 F L 84 16 134/76 100 09/26/18 22:48 97.7 F 79 16 136/63 98 09/26/18 22:30 97.5 F L 84 18 134/76 100 09/26/18 22:02 76 16 139/77 99 09/26/18 19:57 98.1 F 94 18 124/98 100 Intake and Output 09/26/18 09/27/18 09/27/18 22:59 06:59 14:59 Intake Total 0 Output Total 1550 Balance -1550 0 Intake: Oral 0 Output: Urine 1550 Other: Voiding Method Self-Catheterization # Voids 0 0 Weight 58.967 kg 58.2 kg General Appearance: Alert, cooperative, no distress, appears stated age. Worsening confusion. Neck HEENT: Supple, no lymphadenopathy, no thyroid enlargement, no carotid bruits. Lungs: Clear to auscultation without crackles or wheezes no rhonchi, no deformity. Chest Wall: Decrease expansion with deep inspiration no tenderness and no deformity was found on exam, no costochondral pain or discomfort. Heart: Regular rate and rhythm, S1, S2 positive S3 positive JVD with mild systolic murmur.,, rub or gallop. Back: Symmetric, no curvature, ROM normal, no CVA tenderness. Abdomen: Soft, non-tender, bowel sounds active all four quadrants, no masses, no organomegaly. Extremities: Extremities normal, atraumatic, no cyanosis or edema. Pulses: 2+ and symmetric. Skin: Skin color, texture, tugor normal, no rashes or lesions. Neurologic: Alert oriented with slight confusion cranial nerves II through XII intact, no motor deficit, no abnormal balance or gait. Results CBC & Chem 7: 09/27/18 05:38 09/26/18 20:35 Labs: Abnormal Lab Results - Last 24 Hours (Table) 09/26/18 09/26/18 09/26/18 Range/Units 20:35 20:35 20:35 RBC 3.28 L (4.30-5.90) m/uL Hgb 10.6 L (13.0-17.5) gm/dL Hct 31.5 L (39.0-53.0) % Lymphocytes # 0.7 L (1.0-4.8) k/uL APTT 21.5 L (22.0-30.0) sec Chloride 110 H (98-107) mmol/L Carbon Dioxide 21 L (22-30) mmol/L BUN 53 H (9-20) mg/dL Creatinine 1.51 H (0.66-1.25) mg/dL Glucose 188 H (74-99) mg/dL Troponin I (0.000-0.034) ng/mL 09/26/18 09/27/18 09/27/18 Range/Units 20:35 05:38 05:38 RBC 3.32 L (4.30-5.90) m/uL Hgb 10.7 L (13.0-17.5) gm/dL Hct 32.1 L (39.0-53.0) % Lymphocytes # (1.0-4.8) k/uL APTT (22.0-30.0) sec Chloride (98-107) mmol/L Carbon Dioxide (22-30) mmol/L BUN (9-20) mg/dL Creatinine (0.66-1.25) mg/dL Glucose (74-99) mg/dL Troponin I 0.043 H* 4.540 H* (0.000-0.034) ng/mL Thrombosis Risk Factor Assmnt - DVT/VTE Prophylaxis DVT/VTE Prophylaxis: Pharmacologic Prophylaxis ordered, Mechanical Prophylaxis ordered - Choose All That Apply Each Risk Factor Represents 3 Points: Age 75 years or older Thrombosis Risk Factor Assessment Total Risk Factor Score: 3 Thrombosis Risk Factor Assessment Level: Moderate Risk Assessment and Plan Plan: 1 Unstable angina and acute MS: Most likely non-ST MS, patient was hospitalized continue heparin drip continue nitro consult cardiology with possibly repeat another echocardiogram continue medical management for now family still discussing the possibility of going for heart cath versus medical management. 2 severe CAD with ischemic cardiomyopathy: With ejection fraction of 30 percentile patient had diffuse ICD in the past still on medical management only. 3 multiple urinary artery disease: Patient had CABG long time ago and had angioplasty and stent placement in the last few weeks and still symptomatic with recurrent episode this time. 4 acute kidney injury: Stage III chronic kidney disease, continue gentle hydration continue medical management. 5 iron deficiency anemia: Mild continue iron supplement no intervention required at this point. 6 hyperglycemia: Has been on medical management only he is on diet control no medication at this point. 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 8 hypertension: Remain on metoprolol XL 25 g a day along with lisinopril 5 mg daily. 9 hyperlipidemia: Still on atorvastatin 40 mg daily. 10 advanced dementia: Still on Exelon 3 mg twice a day and if needed Namenda can be added as a second choice. 11 severe gastritis and GERD: Has been on Nexium 40 mg daily. 12 severe BPH: On Flomax 0.4 mg daily with no sign of urinary retention. 13 debility: Patient is doing much worse physically will continue medical management and advance physical therapy gradually. 14 DVT prophylaxis: Patient will continue on heparin subcutaneous. 15 GI prophylaxis: Remain on Nexium. CODE STATUS: DO NOT RESUSCITATE. Admit patient to inpatient status for more than 2 nights.
[2018-09-27] MEDS: ATORVASTATIN 40 MG TAB PO SCH (20:10)
[2018-09-27] MEDS ORDERED: DONEPEZIL 10 MG TAB PO SCH (21:00)
[2018-09-28] MEDS: NITROGLYCERIN OINT 1 INCH/GM PACKET TOPICAL SCH ×3 (05:56→09:06)
[2018-09-28] MEDS: HEPARIN SOD,PORK IN 0.45% NACL 25,000 UNIT in 0.45% NACL 1 250ML.BAG IV SCH (06:07)
[2018-09-28 07:28] LABS: Basophils % (A) 1 %; Eosinophils # (A) 0.2 k/uL (0-0.7); Eosinophils % (A) 3 %; HCT 36.8 % (39.0-53.0); HGB 12.1 gm/dL (13.0-17.5); Lymphocytes # (A) 1.5 k/uL (1.0-4.8); Lymphocytes % (A) 18 %; MCH 31.9 pg (25.0-35.0); MCHC 32.9 g/dL (31.0-37.0); MCV 96.9 fL (80.0-100.0); Mean Platelet Volume 8.3; Monocytes # (A) 0.6 k/uL (0-1.0); Monocytes % (A) 7 %; Neutrophils # (A) 5.8 k/uL (1.3-7.7); Neutrophils % (A) 71 %; Platelet Count 165 k/uL (150-450); RDW 14.8 % (11.5-15.5); WBC 8.2 k/uL (3.8-10.6)
[2018-09-28 07:29] LABS: Albumin 3.2 g/dL (3.5-5.0); Potassium 4.4 mmol/L (3.5-5.1); Total Bilirubin 0.5 mg/dL (0.2-1.3); Total Protein 5.7 g/dL (6.3-8.2)
[2018-09-28] MEDS: SPIRONOLACTONE 25 MG TAB PO SCH (09:05)
[2018-09-28] MEDS: LISINOPRIL 5 MG TAB PO SCH (09:05)
[2018-09-28 09:06] VITALS: TEMP 97.8
[2018-09-28] MEDS: ASPIRIN 325 MG TAB PO SCH (09:07)
[2018-09-28 10:19] VITALS: BMI 19.1
[2018-09-28] MEDS ORDERED: ISOSORBIDE MONONITRATE ER 30 MG TAB.ER.24H PO STA (11:48)
[2018-09-28] MEDS ORDERED: CLOPIDOGREL 75 MG TAB PO STA (11:49)
[2018-09-28] MEDS: METOPROLOL TARTRATE 25 MG TAB PO SCH (11:53)
[2018-09-28] MEDS ORDERED: RANOLAZINE 500 MG TAB.ER.12H PO ONE (11:55)
[2018-09-28] MEDS ORDERED: TAMSULOSIN 0.4 MG CAP.ER.24H PO STA (11:56)
[2018-09-28 11:57] VITALS: BP 119/59; PULSE 66
[2018-09-28] MEDS ORDERED: RANOLAZINE 500 MG TAB.ER.12H PO SCH (21:00)
[2018-09-28] MEDS ORDERED: TAMSULOSIN 0.4 MG CAP.ER.24H PO SCH (21:00)
[2018-09-29] MEDS ORDERED: ISOSORBIDE MONONITRATE ER 30 MG TAB.ER.24H PO SCH (09:00)
[2018-09-29] MEDS ORDERED: CLOPIDOGREL 75 MG TAB PO SCH (09:00)
--- NOTE | 2018-09-29 15:27 | P.DS ---
Providers Date of admission: 09/26/18 22:00 Expected date of discharge: 09/28/18 Attending physician: Rula Hennessy MD Consults: 09/26/18 21:58 Consult Physician Urgent Consulting Provider: [facility] Consult Reason/Comments: NSTEMI Do you want consulting provider notified?: Yes Primary care physician: [facility] Course: 83-year-old male one of my office patient who was hospitalized recently for acute SD and had an angioplasty and stent placement [address] MARILEE gaston. Patient was titrated on medical management and doing well until yesterday when he developed to have midsternal chest pain along with worsening shortness of breath with minimal exertion symptoms become quite bit worse along with lightheadedness and dizziness with worsening palpitation cold sweat along with nausea feeling ended up coming to the emergency department at [facility] where was seen and evaluated his troponin was elevated and was increased higher was diagnosed with non-ST elevation myocardial infarction started on nitro heparin drip and admit patient to the hospital with above problem. Review his last echocardiogram with ejection fraction of 35-40 percentile and a very high mortality patient has long discussion with the family apparently chosen not to go for heart cath at this point and to continue to maximize medical management controlling his symptoms which agreeable by cardiology at this point. 09/28: Family have refused heart catheterization and would like medical management only. Family is very concerned as patient had significant confusion during the night due to his underlying dementia. They would like to take the patient home today. Discussed with Dr. Hogan and he has cleared the patient knowing plan is for medical management only. Patient will be discharged home today in stable condition. Discharge diagnoses: 1 acute non-ST elevated myocardial infarction 2 severe CAD with ischemic cardiomyopathy 3 acute kidney injury: Stage III chronic kidney disease 4 anemia of chronic disease 5 Diabetes mellitus type 2, diet controlled. 6 advance chronic systolic heart failure and ischemic cardiomyopathy 7 hypertension 8 hyperlipidemia 9 advanced dementia 10 severe gastritis and GERD 11 severe BPH1 12 debility Discharge plan: Home. Palliative care consult requested. Impression and plan of care have been directed as dictated by the signing physician. Tere Richard nurse practitioner acting as scribe for signing physician. Patient Condition at Discharge: Good Plan - Discharge Summary Discharge Rx Participant: No New Discharge Prescriptions: Continue Aspirin [Adult Low Dose Aspirin EC] 81 mg PO DAILY Ubidecarenone [Co Q-10] 200 mg PO DAILY Magnesium(Dose Unknown) 1 tab PO DAILY Vitamin D3(Dose Unknown) 1 tab PO DAILY Vitamin C(Dose Unknown) 1 tab PO DAILY Isosorbide Mononitrate ER [Imdur] 30 mg PO DAILY Atorvastatin [Lipitor] 40 mg PO HS #90 tab Clopidogrel [Plavix] 75 mg PO DAILY #90 tab Nitroglycerin Sl Tabs [Nitrostat] 0.4 mg SUBLINGUAL Q5M PRN #25 tab PRN Reason: Chest Pain Tamsulosin [Flomax] 0.4 mg PO HS #0 Metoprolol Succinate (ER) [Toprol XL] 25 mg PO DAILY Lisinopril [Zestril] 5 mg PO DAILY #30 tab Spironolactone [Aldactone] 25 mg PO DAILY #30 tab Ranolazine [Ranexa] 500 mg PO BID #60 tab Esomeprazole Magnesium [NexIUM] 40 mg PO DAILY Rivastigmine Tartrate [Exelon] 3 mg PO BID Discharge Medication List Aspirin [Adult Low Dose Aspirin EC] 81 mg PO DAILY 12/30/17 [History] Magnesium(Dose Unknown) 1 tab PO DAILY 01/21/18 [History] Ubidecarenone [Co Q-10] 200 mg PO DAILY 01/21/18 [History] Vitamin C(Dose Unknown) 1 tab PO DAILY 01/21/18 [History] Vitamin D3(Dose Unknown) 1 tab PO DAILY 01/21/18 [History] Isosorbide Mononitrate ER [Imdur] 30 mg PO DAILY 01/27/18 [History] Atorvastatin [Lipitor] 40 mg PO HS #90 tab 01/28/18 [Rx] Clopidogrel [Plavix] 75 mg PO DAILY #90 tab 01/28/18 [Rx] Nitroglycerin Sl Tabs [Nitrostat] 0.4 mg SUBLINGUAL Q5M PRN #25 tab 01/28/18 [Rx] Tamsulosin [Flomax] 0.4 mg PO HS #0 01/28/18 [Rx] Metoprolol Succinate (ER) [Toprol XL] 25 mg PO DAILY 06/29/18 [History] Lisinopril [Zestril] 5 mg PO DAILY #30 tab 07/01/18 [Rx] Ranolazine [Ranexa] 500 mg PO BID #60 tab 07/01/18 [Rx] Spironolactone [Aldactone] 25 mg PO DAILY #30 tab 07/01/18 [Rx] Esomeprazole Magnesium [NexIUM] 40 mg PO DAILY 09/26/18 [History] Rivastigmine Tartrate [Exelon] 3 mg PO BID 09/27/18 [History] Follow up Appointment(s)/Referral(s): Rula Hennessy MD [Medical Doctor] - 10/04/18 10:30 am Tin Triplett MD [STAFF PHYSICIAN] - 1 Week (Office will call with follow up appointment.) Patient Instructions/Handouts: Chest Pain (DC), Heart Healthy Diet (DC) Discharge Disposition: HOME SELF-CARE
== END 2018-09-28 12:23 | disposition home or self-care (01) | DRG 281 ==
LOC: EC 19:56 → 3SCARD 22:00
PROVIDERS: ADMIT Internal Medicine; ATTEND Internal Medicine
DX: I21.4 Non-ST elevation (NSTEMI) myocardial infarction (principal); N17.9 Acute kidney failure, unspecified; I50.22 Chronic systolic (congestive) heart failure; I13.0 Hypertensive heart and chronic kidney disease with heart failure and stage 1 through stage 4 chronic kidney disease, or unspecified chronic kidney disease; F03.90 Unspecified dementia, unspecified severity, without behavioral disturbance, psychotic disturbance, mood disturbance, and anxiety; N18.3 Chronic kidney disease, stage 3 (moderate); E11.22 Type 2 diabetes mellitus with diabetic chronic kidney disease; E11.65 Type 2 diabetes mellitus with hyperglycemia; D63.8 Anemia in other chronic diseases classified elsewhere; I25.110 Atherosclerotic heart disease of native coronary artery with unstable angina pectoris; Z51.5 Encounter for palliative care; Z66 Do not resuscitate; Z95.1 Presence of aortocoronary bypass graft; K21.9 Gastro-esophageal reflux disease without esophagitis; K59.00 Constipation, unspecified; E78.5 Hyperlipidemia, unspecified; F32.9 Major depressive disorder, single episode, unspecified; I44.0 Atrioventricular block, first degree; I25.5 Ischemic cardiomyopathy; D50.9 Iron deficiency anemia, unspecified; K29.70 Gastritis, unspecified, without bleeding; R53.81 Other malaise; N40.0 Benign prostatic hyperplasia without lower urinary tract symptoms; I25.2 Old myocardial infarction; Z79.82 Long term (current) use of aspirin; Z79.899 Other long term (current) drug therapy; Z79.02 Long term (current) use of antithrombotics/antiplatelets; Z88.0 Allergy status to penicillin; Z95.5 Presence of coronary angioplasty implant and graft; Z83.3 Family history of diabetes mellitus; Z91.81 History of falling
CPT/HCPCS: 36415; 71046; 74018; 80053; 80061; 83690; 83735; 83880; 84484; 85025; 85610; 85730; 93005; 96365; 99285

== ENCOUNTER 2018-10-25 06:52 | Inpatient (IN) | payer MEDICARE ==
[2018-10-25] MEDS ORDERED: NITROGLYCERIN OINT 1 INCH/GM PACKET TOPICAL STA (07:10)
[2018-10-25] MEDS ORDERED: ASPIRIN 81 MG PO STA (07:10)
--- NOTE | 2018-10-25 07:19 | ED ---
General Adult HPI - General Chief complaint: Chest Pain Stated complaint: chest pain Time Seen by Provider: 10/25/18 07:00 Source: patient, RN notes reviewed Mode of arrival: wheelchair Limitations: no limitations - History of Present Illness Initial comments: This is an 83-year-old male who presents emergency Department with a past medical history significant for bypass surgery and multiple stents. Patient also has high cholesterol. Patient comes in today stating he woke up with severe chest pain across his chest he denied any radiation of the pain. Patient states she was mildly short of breath. Patient states took a nitroglycerin it completely resolve the pain. Patient did not take an aspirin at home. Patient denies any high blood pressure history or smoking. Patient denies any recent fever chills or cough. Patient denies abdominal pain. Patient denies nausea vomiting diarrhea. Patient denies any diaphoresis. Patient denies any swelling to the legs or calf tenderness. Patient denies any lightheadedness or dizziness. - Related Data Home Medications Medication Instructions Recorded Confirmed Aspirin [Adult Low Dose Aspirin EC] 81 mg PO DAILY 12/30/17 10/25/18 Isosorbide Mononitrate ER [Imdur] 30 mg PO DAILY 01/27/18 10/25/18 Metoprolol Succinate (ER) [Toprol 25 mg PO HS 06/29/18 10/25/18 XL] Esomeprazole Magnesium [NexIUM] 40 mg PO DAILY 09/26/18 10/25/18 Rivastigmine Tartrate [Exelon] 3 mg PO BID 09/27/18 10/25/18 Lisinopril [Zestril] 5 mg PO HS 10/25/18 10/25/18 Previous Rx's Medication Instructions Recorded Atorvastatin [Lipitor] 40 mg PO HS #90 tab 01/28/18 Clopidogrel [Plavix] 75 mg PO DAILY #90 tab 01/28/18 Nitroglycerin Sl Tabs [Nitrostat] 0.4 mg SUBLINGUAL Q5M PRN #25 tab 01/28/18 Tamsulosin [Flomax] 0.4 mg PO HS #0 01/28/18 Spironolactone [Aldactone] 25 mg PO DAILY #30 tab 07/01/18 Allergies Allergy/AdvReac Type Severity Reaction Status Date / Time Penicillins Allergy Rash/Hives Verified 10/25/18 07:50 Review of Systems ROS Statement: Those systems with pertinent positive or pertinent negative responses have been documented in the HPI. ROS Other: All systems not noted in ROS Statement are negative. 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 History of Any Multi-Drug Resistant Organisms: None Reported Past Surgical History: Coronary Bypass/CABG, Heart Catheterization, Heart Catheterization With Stent, Prostate Surgery Additional Past Surgical History / Comment(s): left endarterectomy, CABG 1994, 2017 Past Anesthesia/Blood Transfusion Reactions: No Reported Reaction Date of Last Stent Placement:: 2017 Past Psychological History: Depression Smoking Status: Never smoker Past Alcohol Use History: Rare Past Drug Use History: None Reported - Past Family History Father Family Medical History: Diabetes Mellitus Mother Additional Family Medical History / Comment(s): heart problems General Exam - General Exam Comments Initial Comments: GENERAL: Patient is well-developed and well-nourished. Patient is nontoxic and well- hydrated and is in mild distress. ENT: Neck is soft and supple. No significant lymphadenopathy is noted. Oropharynx is clear. Moist mucous membranes. Neck has full range of motion without eliciting any pain. EYES: The sclera were anicteric and conjunctiva were pink and moist. Extraocular movements were intact and pupils were equal round and reactive to light. Eyelids were unremarkable. PULMONARY: Unlabored respirations. Good breath sounds bilaterally. No audible rales rhonchi or wheezing was noted. CARDIOVASCULAR: There is a regular rate and rhythm without any murmurs gallops or rubs. ABDOMEN: Soft and nontender with normal bowel sounds. No palpable organomegaly was noted. There is no palpable pulsatile mass. SKIN: Skin is clear with no lesions or rashes and otherwise unremarkable. NEUROLOGIC: Patient is alert and oriented x3. Cranial nerves II through XII are grossly intact. Motor and sensory are also intact. Normal speech, volume and content. Symmetrical smile. MUSCULOSKELETAL: Normal extremities with adequate strength and full range of motion. No lower extremity swelling or edema. No calf tenderness. LYMPHATICS: No significant lymphadenopathy is noted PSYCHIATRIC: Normal psychiatric evaluation. Limitations: no limitations Course Vital Signs 10/25/18 10/25/18 06:59 08:12 Temperature 98.1 F Pulse Rate 64 56 L Respiratory 18 17 Rate Blood Pressure 134/68 118/52 O2 Sat by Pulse 98 99 Oximetry Medical Decision Making - Medical Decision Making EKG shows sinus rhythm with occasional PAC at a rate of 66 bpm FL interval 208 6 QRS is 88 QT interval 420 QTC is 440. Patient's EKG shows some ST segment depression in leads V2 through V6. Patient also has T-wave inversions in the same leads. When I compared to an old EKG ST segment depression is slightly more pronounced but very similar. I called Dr. Bajwa and he agreed to come down and see the patient. Patient is currently chest pain-free Chest x-ray shows no acute abnormality. I heparinized the patient. Dr. Bajwa came down and saw the patient. I spoke with Dr. Mustafa. I admitted the patient wrote admitting orders. Continue heparin and aspirin and Nitropaste floor. - Lab Data Result diagrams: 10/25/18 07:05 10/25/18 07:05 Lab Results 10/25/18 10/25/18 10/25/18 Range/Units 07:05 07:05 07:05 WBC 9.3 (3.8-10.6) k/uL RBC 3.31 L (4.30-5.90) m/uL Hgb 10.5 L (13.0-17.5) gm/dL Hct 32.2 L (39.0-53.0) % MCV 97.2 (80.0-100.0) fL MCH 31.9 (25.0-35.0) pg MCHC 32.8 (31.0-37.0) g/dL RDW 13.9 (11.5-15.5) % Plt Count 139 L (150-450) k/uL Neutrophils % 85 % Lymphocytes % 6 % Monocytes % 7 % Eosinophils % 1 % Basophils % 0 % Neutrophils # 7.9 H (1.3-7.7) k/uL Lymphocytes # 0.6 L (1.0-4.8) k/uL Monocytes # 0.6 (0-1.0) k/uL Eosinophils # 0.1 (0-0.7) k/uL Basophils # 0.0 (0-0.2) k/uL PT 10.8 (9.0-12.0) sec INR 1.0 (<1.2) APTT 21.8 L (22.0-30.0) sec Sodium 141 (137-145) mmol/L Potassium 4.1 (3.5-5.1) mmol/L Chloride 110 H (98-107) mmol/L Carbon Dioxide 23 (22-30) mmol/L Anion Gap 8 mmol/L BUN 57 H (9-20) mg/dL Creatinine 1.69 H (0.66-1.25) mg/dL Est GFR (CKD-EPI)AfAm 43 (>60 ml/min/1.73 sqM) Est GFR (CKD-EPI)NonAf 37 (>60 ml/min/1.73 sqM) Glucose 118 H (74-99) mg/dL Calcium 9.4 (8.4-10.2) mg/dL Magnesium 1.9 (1.6-2.3) mg/dL Total Bilirubin 0.7 (0.2-1.3) mg/dL AST 19 (17-59) U/L ALT 16 L (21-72) U/L Alkaline Phosphatase 42 (38-126) U/L Troponin I (0.000-0.034) ng/mL Total Protein 6.5 (6.3-8.2) g/dL Albumin 3.8 (3.5-5.0) g/dL 10/25/18 Range/Units 07:05 WBC (3.8-10.6) k/uL RBC (4.30-5.90) m/uL Hgb (13.0-17.5) gm/dL Hct (39.0-53.0) % MCV (80.0-100.0) fL MCH (25.0-35.0) pg MCHC (31.0-37.0) g/dL RDW (11.5-15.5) % Plt Count (150-450) k/uL Neutrophils % % Lymphocytes % % Monocytes % % Eosinophils % % Basophils % % Neutrophils # (1.3-7.7) k/uL Lymphocytes # (1.0-4.8) k/uL Monocytes # (0-1.0) k/uL Eosinophils # (0-0.7) k/uL Basophils # (0-0.2) k/uL PT (9.0-12.0) sec INR (<1.2) APTT (22.0-30.0) sec Sodium (137-145) mmol/L Potassium (3.5-5.1) mmol/L Chloride (98-107) mmol/L Carbon Dioxide (22-30) mmol/L Anion Gap mmol/L BUN (9-20) mg/dL Creatinine (0.66-1.25) mg/dL Est GFR (CKD-EPI)AfAm (>60 ml/min/1.73 sqM) Est GFR (CKD-EPI)NonAf (>60 ml/min/1.73 sqM) Glucose (74-99) mg/dL Calcium (8.4-10.2) mg/dL Magnesium (1.6-2.3) mg/dL Total Bilirubin (0.2-1.3) mg/dL AST (17-59) U/L ALT (21-72) U/L Alkaline Phosphatase (38-126) U/L Troponin I 0.057 H* (0.000-0.034) ng/mL Total Protein (6.3-8.2) g/dL Albumin (3.5-5.0) g/dL Critical Care Time Critical Care Time: Yes Total Critical Care Time: 35 Disposition Clinical Impression: Non-STEMI (non-ST elevated myocardial infarction) Disposition: ADMITTED IP TO THIS HOSP Referrals: Khurram Mustafa MD [Primary Care Provider] - 1-2 days Time of Disposition: 08:29
[2018-10-25 07:36] LABS: Basophils % (A) 0 %; Eosinophils # (A) 0.1 k/uL (0-0.7); Eosinophils % (A) 1 %; HCT 32.2 % (39.0-53.0); HGB 10.5 gm/dL (13.0-17.5); Lymphocytes # (A) 0.6 k/uL (1.0-4.8); Lymphocytes % (A) 6 %; MCH 31.9 pg (25.0-35.0); MCHC 32.8 g/dL (31.0-37.0); MCV 97.2 fL (80.0-100.0); Mean Platelet Volume 7.8; Monocytes # (A) 0.6 k/uL (0-1.0); Monocytes % (A) 7 %; Neutrophils # (A) 7.9 k/uL (1.3-7.7); Neutrophils % (A) 85 %; Platelet Count 139 k/uL (150-450); RBC 3.31 m/uL (4.30-5.90); RDW 13.9 % (11.5-15.5); WBC 9.3 k/uL (3.8-10.6)
[2018-10-25 07:41] LABS: Albumin 3.8 g/dL (3.5-5.0); Calcium 9.4 mg/dL (8.4-10.2); Magnesium 1.9 mg/dL (1.6-2.3); Potassium 4.1 mmol/L (3.5-5.1); Total Bilirubin 0.7 mg/dL (0.2-1.3); Total Protein 6.5 g/dL (6.3-8.2)
[2018-10-25 07:48] LABS: Prothrombin Time 10.8 sec (9.0-12.0)
[2018-10-25 07:54] LABS: Partial Thromboplastin Time 21.8 sec (22.0-30.0)
[2018-10-25] MEDS ORDERED: HEPARIN SODIUM,PORCINE 5,000 UNIT/ML 1 ML VIAL IV ONE (08:21)
--- NOTE | 2018-10-25 08:23 | XR ---
EXAMINATION TYPE: XR chest 2V DATE OF EXAM: 10/25/2018 COMPARISON: Prior chest x-ray 09/26/2018 HISTORY: Chest pain and shortness of breath TECHNIQUE: Frontal and lateral views of the chest are obtained. FINDINGS: Patient is post median sternotomy. The aorta is dense. Heart size is stable. Pulmonary vas cularity and lazarus not significantly changed. No evident airspace disease, pneumothorax, or pleural ef fusion. There are overlying cardiac leads and the patient is rotated. IMPRESSION: No acute cardiopulmonary process. Stable exam.
[2018-10-25] MEDS ORDERED: HEPARIN SOD,PORK IN 0.45% NACL 25,000 UNIT in 0.45% NACL 1 250ML.BAG IV SCH (08:30)
[2018-10-25] MEDS ORDERED: NITROGLYCERIN SL TABS 0.4 MG TAB SUBLINGUAL PRN (08:30)
[2018-10-25 09:42] LABS: Glucose,Whole Blood 83 mg/dL (75-99)
--- NOTE | 2018-10-25 09:45 | CONS ---
CONSULTATION Mr. Pereira is an 83-year-old male with a known history of coronary artery disease, status post coronary artery bypass grafting who has been followed by Dr. Sully Triplett. He presented to the emergency room with symptoms of chest discomfort. The patient was in the hospital in September with symptoms of chest discomfort and at that time he had evidence of non ST-segment elevation myocardial infarction with troponin peak in the range of 5. He was evaluated by Dr. Sully Triplett and the patient elected not to undergo any invasive workup. He was seen subsequently by Dr. Triplett in the office and he had recurrent chest pain and was initially scheduled to undergo cardiac catheterization then the patient decided not to proceed. In June of this year, he had an echocardiogram revealed ejection fraction 35% to 40% He presented to the emergency room today with chest discomfort that woke him up from sleep. At the time of my evaluation he is pain free. The patient is limited in his physical activity. He has been losing weight and he has progressive dementia. He has no dizziness or palpitation. No PND, orthopnea, or peripheral edema. He has underwent prior coronary angiography and stenting most recently in June of [address] Ramos at that time. Bypass surgery was in 1993. He had stenting done in January of 2018 of the left circumflex and subsequently in 2018 underwent cardiac catheterization by Dr. Ramos and was found to have patent WONG to LAD, patent saphenous vein graft to the left circumflex with critical stenosis in distal anastomotic site of the saphenous vein graft to the right coronary artery that was stented. He has been readmitted to the hospital with recurrent episode of chest pain. His coronary risk factors are remarkable for history of hypertension. He is nondiabetic. He is hyperlipidemic. MEDICATION: His medications include Flomax, Aldactone 25 mg daily, Exelon, Toprol XL 25 mg daily, lisinopril 5 mg daily, isosorbide mononitrate 30 mg daily, Nexium 40 mg daily, Plavix 75 mg daily, Lipitor 40 mg daily, and aspirin 81 mg daily. REVIEW OF SYSTEMS: RESPIRATORY SYSTEM: No recent wheezing or cough. No history of documented obstructive lung disease. GI SYSTEM: No recent GI bleed. No peptic ulcer disease. SYSTEM: No dysuria or hematuria. NERVOUS SYSTEM: No history of stroke or seizure. PHYSICAL EXAMINATION: He is an 83-year-old male, alert, confused, in no apparent distress. Blood pressure 118/50 with the heart rate in the 60s. HEAD: Normocephalic. EYES: Sclerae anicteric. NECK: Good carotid upstroke with bruit noted, more on the right side. LUNGS: Clear to auscultation. HEART: Regular rate and rhythm. S1, S2. No S3 with systolic ejection murmur 2/6 at the base. No diastolic murmur. ABDOMEN: Soft, nontender. Positive bowel sounds. No organomegaly. EXTREMITIES: No edema. Intact distal pulses. LAB DATA: Lab data revealed BUN and creatinine 57 and 1.69. Potassium 4.1. Troponin 0.057. Hemoglobin of 10.5. EKG revealed a sinus mechanism, normal axis and intervals with T-wave inversion in the anterolateral leads with early transition. Compared with an EKG performed in September, the patient had same changes, although more prominent at this time. Chest x-ray shows no acute infiltrate. IMPRESSION: 1. Acute myocardial infarction could be in the left circumflex territory with a posterior myocardial infarction with a prominent R-wave in lead V2. 2. Status post coronary artery bypass grafting and prior stenting. 3. Ischemic cardiomyopathy. 4. Chronic kidney disease. 5. Dementia. 6. Hypertension. 7. Hyperlipidemia. RECOMMENDATION: I had a long discussion with the patient and his family regarding the options including conservative treatment and aggressive approach, the advantage and disadvantage of both approach. The patient in the past has declined cardiac catheterization. At this time, we will maximize his medical therapy and depending on their decision, further recommendation will be made. I have discussed the case with Dr. Sully Triplett who is his primary fire range technician. Thank you for this consult. We will follow with you. MMODL / IJN: [id number] /
[2018-10-25] MEDS: RANOLAZINE 500 MG TAB.ER.12H PO SCH ×2 (10:09→20:52)
[2018-10-25] MEDS: SPIRONOLACTONE 25 MG TAB PO SCH (10:09)
[2018-10-25] MEDS: CLOPIDOGREL 75 MG TAB PO SCH (10:09)
[2018-10-25] MEDS: NITROGLYCERIN OINT 1 INCH/GM PACKET TOPICAL SCH ×2 (11:11→19:49)
--- NOTE | 2018-10-25 12:57 | P.HPIM ---
History of Present Illness H&P Date: 10/25/18 Chief Complaint: Unstable angina, recurrent chest pain, advance cardiopathy, worsening demen 83-year-old male one of my office patient with advance first cardiac heart disease multiple coronary artery disease multiple IA in the past who had to angioplasty and stent placement last few weeks was in the hospital for weeks ago with worsening chest pain and angina with elevated troponin was supposed to go for heart catheter patient refused and changes mind the last minute ended up being discharged home and follow as an outpatient with Dr. MONTOYA ready and convinced to go for heart cath was planned for early 10/20/2018 and patient apparently changes mind the last minute went back for his follow-up as well was convinced to do the heart cath one more time in the changes mind this time as well. Patient presented [facility] early this morning on 10/25/2018 with recurrent history of angina and chest pain with minimal exertion has improved nitroglycerin symptom were severe midsternal radiating the left upper chest area associated with nausea vomiting palpitation cold sweat worsening dementia and memory loss along with worsening nausea. By the time patient made it to the emergency department at [facility] his EKG didn't show any major change troponin was mildly elevated patient was heparinize and admitted to the hospital went to the ICU was seen cardiology and originally began start arguing and decided not to go for heart cath any changes mind and is agreeable to go for heart cath at this point, we come any clear this with Dr. Bajwa in Dr. Triplett hoping patient might be able to go for angiogram and if needed angioplasty to fix the area causing him recurrent chest pain and angina and from there on can be on medical management. Review of Systems CONSTITUTIONAL: Well-developed no acute respiratory distress. Worsening dementia EYES: No icterus sclerae, no conjunctivitis. EARS, NOSE, MOUTH, THROAT, and FACE: No sore throat, lymphadenopathy, carotid bruits or deformity. RESPIRATORY: Positive chest pain shortness of breath cough. CARDIOVASCULAR: Positive PND at 70 palpitation angina. GASTROINTESTINAL: Nausea with no vomiting positive mild constipation no lower GI bleed. GENITOURINARY: Positive urinary retention patient does self catheter regularly also had history of BPH. INTEGUMENT/BREAST: Negative for any muscular injury with mild osteoarthritis.. HEMATOLOGIC/LYMPHATIC: Negative for bleed or purpura. MUSCULOSKELTAL: Negative for Myalgia or arthralgia. NEURLOGICAL: Worsening Alzheimer dementia BEHAVIORAL/PSYCH: Negative. ENDOCRINE: Negative. Past Medical History Past Medical History: Coronary Artery Disease (CAD), Chest Pain / Angina, Heart Failure, Dementia, GERD/Reflux, Hyperlipidemia, Hypertension, Myocardial Infarction (IA), Pneumonia, Prostate Disorder, Vascular Disorder Additional Past Medical History / Comment(s): Cardiomyopathy, BPH, self caths 1- 2 times a day, chronic renal disease stage III, chronic anemia, constipation, PAD, abdominal aortic aneurysm-monitoring, low back pain in past. Last Myocardial Infarction Date:: 10/25/18 History of Any Multi-Drug Resistant Organisms: None Reported Past Surgical History: Coronary Bypass/CABG, Heart Catheterization, Heart Catheterization With Stent, Prostate Surgery Additional Past Surgical History / Comment(s): Left endarterectomy, CABG 1994, TURP, colonoscopy. Past Anesthesia/Blood Transfusion Reactions: No Reported Reaction Date of Last Stent Placement:: 2017 Smoking Status: Never smoker - Past Family History Father Family Medical History: Diabetes Mellitus Mother Additional Family Medical History / Comment(s): heart problems Medications and Allergies Home Medications Medication Instructions Recorded Confirmed Type Aspirin [Adult Low Dose Aspirin EC] 81 mg PO DAILY 12/30/17 10/25/18 History Isosorbide Mononitrate ER [Imdur] 30 mg PO DAILY 01/27/18 10/25/18 History Atorvastatin [Lipitor] 40 mg PO HS #90 tab 01/28/18 10/25/18 Rx Clopidogrel [Plavix] 75 mg PO DAILY #90 tab 01/28/18 10/25/18 Rx Nitroglycerin Sl Tabs [Nitrostat] 0.4 mg SUBLINGUAL Q5M PRN #25 tab 01/28/18 10/25/18 Rx Tamsulosin [Flomax] 0.4 mg PO HS #0 01/28/18 10/25/18 Rx Metoprolol Succinate (ER) [Toprol 25 mg PO HS 06/29/18 10/25/18 History XL] Spironolactone [Aldactone] 25 mg PO DAILY #30 tab 07/01/18 10/25/18 Rx Esomeprazole Magnesium [NexIUM] 40 mg PO DAILY 09/26/18 10/25/18 History Rivastigmine Tartrate [Exelon] 3 mg PO BID 09/27/18 10/25/18 History Lisinopril [Zestril] 5 mg PO HS 10/25/18 10/25/18 History Allergies Allergy/AdvReac Type Severity Reaction Status Date / Time Penicillins Allergy Rash/Hives Verified 10/25/18 07:50 Physical Exam Vitals: Vital Signs Temp Pulse Resp BP Pulse Ox 10/25/18 11:00 69 26 H 124/58 99 10/25/18 10:00 64 44 H 138/62 100 10/25/18 09:00 97.9 F 63 17 104/57 97 10/25/18 08:31 98 10/25/18 08:12 56 L 17 118/52 99 10/25/18 08:00 112/46 10/25/18 07:00 62 21 134/58 10/25/18 06:59 98.1 F 64 18 134/68 98 10/25/18 06:58 75 21 134/58 100 Intake and Output 10/24/18 10/25/18 10/25/18 22:59 06:59 14:59 Intake Total 40 Output Total 0 Balance 40 Intake: IV 40 normal saline 40 Output: Urine 0 Other: Weight 56.699 kg General Appearance: Alert, cooperative, no distress, appears stated age. Significantly confused Neck HEENT: Supple, no lymphadenopathy, no thyroid enlargement, no carotid bruits. Lungs: Clear to auscultation without crackles or wheezes no rhonchi, no deformity. Chest Wall: Chest wall normal expansion with deep inspiration no tenderness and no deformity was found on exam, no costochondral pain or discomfort. Heart: Irregular rate and rhythm, S1, S2 positive S3 positive systolic murmur. no rub or gallop. Back: Symmetric, no curvature, ROM normal, no CVA tenderness. Abdomen: Soft, non-tender, bowel sounds active all four quadrants, no masses, no organomegaly. Extremities: Extremities normal, atraumatic, no cyanosis or edema. Pulses: 2+ and symmetric. Skin: Skin color, texture, tugor normal, no rashes or lesions. Neurologic: Alert oriented x2 cranial nerves II through XII intact, no motor deficit, no abnormal balance or gait. Severe confusion with dementia. Results CBC & Chem 7: 10/25/18 07:05 10/25/18 07:05 Labs: Abnormal Lab Results - Last 24 Hours (Table) 10/25/18 10/25/18 10/25/18 Range/Units 07:05 07:05 07:05 RBC 3.31 L (4.30-5.90) m/uL Hgb 10.5 L (13.0-17.5) gm/dL Hct 32.2 L (39.0-53.0) % Plt Count 139 L (150-450) k/uL Neutrophils # 7.9 H (1.3-7.7) k/uL Lymphocytes # 0.6 L (1.0-4.8) k/uL APTT 21.8 L (22.0-30.0) sec Chloride 110 H (98-107) mmol/L BUN 57 H (9-20) mg/dL Creatinine 1.69 H (0.66-1.25) mg/dL Glucose 118 H (74-99) mg/dL ALT 16 L (21-72) U/L Troponin I (0.000-0.034) ng/mL 10/25/18 Range/Units 07:05 RBC (4.30-5.90) m/uL Hgb (13.0-17.5) gm/dL Hct (39.0-53.0) % Plt Count (150-450) k/uL Neutrophils # (1.3-7.7) k/uL Lymphocytes # (1.0-4.8) k/uL APTT (22.0-30.0) sec Chloride (98-107) mmol/L BUN (9-20) mg/dL Creatinine (0.66-1.25) mg/dL Glucose (74-99) mg/dL ALT (21-72) U/L Troponin I 0.057 H* (0.000-0.034) ng/mL Thrombosis Risk Factor Assmnt - DVT/VTE Prophylaxis DVT/VTE Prophylaxis: Pharmacologic Prophylaxis ordered, Mechanical Prophylaxis ordered - Choose All That Apply Each Factor Represents 1 point: Acute IA Other Risk Factors: Yes Each Risk Factor Represents 3 Points: Age 75 years or older Other congenital or acquired thrombophilia - If yes, enter type in comment: No Thrombosis Risk Factor Assessment Total Risk Factor Score: 4 Thrombosis Risk Factor Assessment Level: Moderate Risk Assessment and Plan Plan: 1 unstable angina: With known advanced coronary disease with multiple angioplasty and stent placement, with elevated troponin with her current symptom of chest pain patient be hospitalized will be seeing cardiology CK with troponi n 3 be done and if agreeable heart catheter should be arranged this time and hopefully we go through if there is any area need to be fixed with intervention hopefully with the care of his symptoms completely otherwise we'll continue to maximize his medical management. 2 non-ST IA: Elevated cardiac enzyme with no ST elevation on EKG, we'll continue to treat patient medically consult cardiology and possible need for heart cath. 3 advanced coronary disease: With multiple angioplasty and stent placement in the past with bypass surgery back in patient is still symptomatic medically despite the last 2 angioplasty and stent placement with Dr. Triplett the last few weeks. 4 cardiomyopathy: Remain on medical management patient still on isosorbide, lisinopril, metoprolol and spironolactone and continue medication. Patient was started on Ranexa 500 mg twice a day from last time continue medication. 5 advance dementia: Alzheimer-type patient was on Exelon 3 mg twice a day no major change. 6 hyperlipidemia: Remain on atorvastatin 40 mg a day. 7 congestive heart failure systolic dysfunction with mild diastolic component mostly chronic with acute component continue metoprolol lisinopril furosemide and spironolactone. 8 chronic kidney disease stage III with acute kidney injury continue BUN/creatinine daily basis continue medical management. 9 severe GERD/GI prophylaxis: Continue patient on on omeprazole 40 mg daily. DVT prophylaxis: Patient will be on heparin IV for now. CODE STATUS: No code. Admit patient to inpatient status for more than 2 nights.
[2018-10-25] MEDS ORDERED: LIDOCAINE 1% INJ 10MG/ML (20 ML MDV) ONE (18:29)
[2018-10-25] MEDS ORDERED: IV FLUID CONTINUATION 1,000 ML IV ONE (18:38)
[2018-10-25] MEDS ORDERED: LIDOCAINE 1% INJ 10MG/ML (20 ML MDV) SQ ONE (18:57)
[2018-10-25] MEDS ORDERED: IOPAMIDOL-370 125ML BTL INJ ONE (19:21)
[2018-10-25] MEDS ORDERED: RX INFO: IV CONTRAST WAS GIVEN 1 EACH MISC MISCELLANE PRN (19:44)
[2018-10-25] MEDS ORDERED: BISACODYL 5 MG TABLET.DR PO PRN (19:49)
[2018-10-25] MEDS: SODIUM CHLORIDE 0.9% 1,000 ML IV SCH (20:52)
[2018-10-25] MEDS ORDERED: ATORVASTATIN 40 MG TAB PO SCH (21:00)
[2018-10-25] MEDS ORDERED: METOPROLOL SUCCINATE (ER) 25 MG TAB.ER.24H PO SCH (21:00)
[2018-10-25] MEDS ORDERED: LISINOPRIL 5 MG TAB PO SCH (21:00)
--- NOTE | 2018-10-26 00:32 | CC ---
CARDIAC CATHETERIZATION REPORT DATE OF SERVICE: 10/25/2018. PROCEDURE: Left heart catheterization, selective coronary angiography and selective injection of the 3 bypass grafts. PERFORMED BY: Dr. Sully Triplett. SEDATION: Moderate conscious sedation time was 28 minutes. Patient's oxygen saturation, hemodynamics and EKG were monitored closely. CLINICAL INFORMATION: Mr. Sunil Pereira is an 83-year-old gentleman with a known history of CAD, hypertension, hyperlipidemia, and dementia. In 1993, he underwent aortocoronary bypass surgery with WONG to LAD. Vein grafts were placed to the 3 branches of circumflex, namely obtuse marginal branch of circumflex, PDA branch of circumflex and PLV branch of circumflex. RCA was never grafted. In 2010 these bypass grafts were patent and he was advised medical therapy but eyak vessels were occluded. In January 2018, I performed stenting of a vein graft to the obtuse marginal branch of circumflex and in June of 2018, Dr. Ramos performed stenting of the vein graft to the PDA branch of the circumflex. The PLV branch of circumflex which has a vein graft was never stented. His WONG was patent, but there was bridging in the mid LAD noted. Because of recurrent hospitalization with a troponin elevation, he was advised cardiac catheterization after due discussion with the patient and family. His creatinine was also elevated. Renal failure risk was also discussed at length. The patient and family wished to proceed with the procedure. PROCEDURE NOTE: Under local anesthesia and strict aseptic precautions, 6-Korean introducer was placed in the right femoral artery. A long 23 cm sheath was used because of tortuosity in the iliac system. I used a multipurpose catheter to perform selective coronary angiography of the 3 vein grafts. A WONG injection was not performed. I used a JL3.5 and JR4 catheter for the selective coronary angiography. The same multipurpose catheter was used to check LV pressures. LV gram was not performed. The sheath was taken out and manual compression used to secure hemostasis. Patient tolerated procedure well without complication. The results were discussed with the patient and family. His 3 vein grafts were patent, both of which were stented in the past. CARDIAC CATHETERIZATION FINDINGS: The left ventricle end-diastolic pressure was 14 mmHg and there was a gradient of less than 10 mmHg across aortic valve. CORONARY ANGIOGRAPHY FINDINGS: LEFT MAIN CORONARY ARTERY: This is totally occluded, not selectively injected, without much antegrade flow. RIGHT CORONARY ARTERY: This is a nondominant vessel, totally occluded. Conus branch is patent, goes back and fills some collaterals to the LAD distribution. RCA is totally occluded. SAPHENOUS VEIN GRAFT TO OBTUSE MARGINAL BRANCH OF CIRCUMFLEX: This graft is widely patent, has no significant disease at its origin, course or insertion site. The stented segment is widely patent with very good flow. SAPHENOUS VEIN GRAFT TO PDA BRANCH OF RCA: This graft is widely patent at the site of stenting and the entire body of the graft is free of significant disease. Distally it opacifies the PDA branch, has no significant disease and supplies a sizable amount of myocardium. SAPHENOUS VEIN GRAFT TO PLV BRACH OF CIRCUMFLEX: This graft is widely patent at it's origin, course and insertion site. After insertion, the PLV branch is patent. There is a secondary branch which goes back and fills the groove branch. This branch of circumflex that is the eyak branch has a subtotal occlusion and this may be the culprit vessel. This is a PLV branch and the opacified PLV branch divides into 2 branches. The superior branch is subtotally occluded and this was not very well opacified on the previous angiogram, but this may be the culprit lesion. However, access to this secondary branch is quite difficult. LEFT INTERNAL MAMMARY ARTERY GRAFT TO LAD: Not injected. LV pressures were checked but LV gram was not performed. FINAL IMPRESSION: This patient's eyak coronary arteries are occluded. The vein graft to the obtuse marginal that was stented in January of 2018 is widely patent without significant disease. The vein graft to the PDA branch of RCA that was stented in June of 2018 is widely patent. The vein graft to the PLV branch of circumflex is patent but there is a secondary branch that is subtotally occluded and this could be the culprit vessel. The WONG was not injected. RECOMMENDATIONS: Findings were discussed with the patient and family. I am recommending continued medical therapy with risk factor modification with no aggressive intervention. He has disease involving the branches of eyak vessels, for which no percutaneous or surgical intervention is advised explained. I explained this to the patient and family. I expect he will be discharged the next 24 to 48 hours. MMODL / IJN: [id number] /
[2018-10-26] MEDS: NITROGLYCERIN OINT 1 INCH/GM PACKET TOPICAL SCH ×2 (03:53→06:36)
[2018-10-26 06:41] LABS: Basophils % (A) 0 %; Eosinophils # (A) 0.1 k/uL (0-0.7); Eosinophils % (A) 1 %; HCT 35.4 % (39.0-53.0); HGB 11.7 gm/dL (13.0-17.5); Lymphocytes % (A) 9 %; MCHC 33.2 g/dL (31.0-37.0); MCV 96.5 fL (80.0-100.0); Mean Platelet Volume 8.1; Monocytes # (A) 0.8 k/uL (0-1.0); Monocytes % (A) 7 %; Neutrophils # (A) 9.3 k/uL (1.3-7.7); Neutrophils % (A) 82 %; Platelet Count 146 k/uL (150-450); RBC 3.66 m/uL (4.30-5.90); RDW 14.4 % (11.5-15.5); WBC 11.3 k/uL (3.8-10.6)
[2018-10-26 06:42] LABS: Calcium 9.4 mg/dL (8.4-10.2); Potassium 4.4 mmol/L (3.5-5.1)
[2018-10-26 08:45] VITALS: BP 126/59; PULSE 57; RESP 18; TEMP 97.5
[2018-10-26] MEDS: SPIRONOLACTONE 25 MG TAB PO SCH (08:55)
[2018-10-26] MEDS: RANOLAZINE 500 MG TAB.ER.12H PO SCH (08:55)
[2018-10-26] MEDS: CLOPIDOGREL 75 MG TAB PO SCH (08:55)
[2018-10-26] MEDS ORDERED: ASPIRIN 325 MG TAB PO SCH (09:00)
[2018-10-26] MEDS ORDERED: ASPIRIN 81 MG PO SCH (09:00)
[2018-10-26] MEDS: SODIUM CHLORIDE 0.9% 1,000 ML IV SCH (11:52)
--- NOTE | 2018-10-26 13:27 | P.DS ---
Providers Date of admission: 10/25/18 08:31 Attending physician: Khurram Mustafa Consults: 10/25/18 08:31 Consult Physician Urgent Consulting Provider: [facility] Consult Reason/Comments: Non-STEMI Do you want consulting provider notified?: Yes Primary care physician: Khurram Mustafa [place] [facility] Course: Chief Complaint: Unstable angina, recurrent chest pain, advance cardiopathy, worsening demen 83-year-old male one of my office patient with advance first cardiac heart disease multiple coronary artery disease multiple IA in the past who had to angioplasty and stent placement last few weeks was in the hospital for weeks ago with worsening chest pain and angina with elevated troponin was supposed to go for heart catheter patient refused and changes mind the last minute ended up being discharged home and follow as an outpatient with Dr. JAN gaston and convinced to go for heart cath was planned for early 10/20/2018 and patient apparently changes mind the last minute went back for his follow-up as well was convinced to do the heart cath one more time in the changes mind this time as well. Patient presented to [facility] early this morning on 10/25/2018 with recurrent history of angina and chest pain with minimal exertion has improved nitroglycerin symptom were severe midsternal radiating the left upper chest area associated with nausea vomiting palpitation cold sweat worsening dementia and memory loss along with worsening nausea. By the time patient made it to the emergency department at [facility] his EKG didn't show any major change troponin was mildly elevated patient was heparinize and admitted to the hospital went to the ICU was seen cardiology and originally began start arguing and decided not to go for heart cath any changes mind and is agreeable to go for heart cath at this point, we come any clear this with Dr. Bajwa in Dr. Triplett hoping patient might be able to go for angiogram and if needed angioplasty to fix the area causing him recurrent chest pain and angina and from there on can be on medical management. Cardiac catheter was performed and results were not consistent with any major blockage require any angioplasty, patient will be on medical management and long talk with the family today 10/26/2018 about going home with extra help to quit follow-up they're all agreeable with it patient is not symptomatic today. Review of Systems CONSTITUTIONAL: Well-developed no acute respiratory distress. Worsening dementia EYES: No icterus sclerae, no conjunctivitis. EARS, NOSE, MOUTH, THROAT, and FACE: No sore throat, lymphadenopathy, carotid bruits or deformity. RESPIRATORY: Positive chest pain shortness of breath cough. CARDIOVASCULAR: Positive PND at 70 palpitation angina. GASTROINTESTINAL: Nausea with no vomiting positive mild constipation no lower GI bleed. GENITOURINARY: Positive urinary retention patient does self catheter regularly also had history of BPH. INTEGUMENT/BREAST: Negative for any muscular injury with mild osteoarthritis.. HEMATOLOGIC/LYMPHATIC: Negative for bleed or purpura. MUSCULOSKELTAL: Negative for Myalgia or arthralgia. NEURLOGICAL: Worsening Alzheimer dementia BEHAVIORAL/PSYCH: Negative. ENDOCRINE: Negative. Physical Exam General Appearance: Alert, cooperative, no distress, appears stated age. Significantly confused Neck HEENT: Supple, no lymphadenopathy, no thyroid enlargement, no carotid bruits. Lungs: Clear to auscultation without crackles or wheezes no rhonchi, no deformity. Chest Wall: Chest wall normal expansion with deep inspiration no tenderness and no deformity was found on exam, no costochondral pain or discomfort. Heart: Irregular rate and rhythm, S1, S2 positive S3 positive systolic murmur. no rub or gallop. Back: Symmetric, no curvature, ROM normal, no CVA tenderness. Abdomen: Soft, non-tender, bowel sounds active all four quadrants, no masses, no organomegaly. Extremities: Extremities normal, atraumatic, no cyanosis or edema. Pulses: 2+ and symmetric. Skin: Skin color, texture, tugor normal, no rashes or lesions. Neurologic: Alert oriented x2 cranial nerves II through XII intact, no motor deficit, no abnormal balance or gait. Severe confusion with dementia. Assessment and Plan Plan: 1 unstable angina: With known advanced coronary disease with multiple angioplasty and stent placement, with elevated troponin with her current symptom of chest pain patient be hospitalized will be seeing cardiology CK with troponin 3 be done and if agreeable heart catheter should be arranged this time and hopefully we go through if there is any area need to be fixed with intervention hopefully with the care of his symptoms completely otherwise we'll continue to maximize his medical management. 2 non-ST IA: Heart catheter was done and no major blockage require any angioplasty this point. 3 advanced coronary disease: With multiple angioplasty and stent placement in the past with bypass surgery back in patient is still symptomatic medically despite the last 2 angioplasty and stent placement with Dr. Triplett the last few weeks. 4 cardiomyopathy: Remain on medical management patient still on isosorbide, lisinopril, metoprolol and spironolactone and continue medication. Patient was started on Ranexa 500 mg twice a day from last time continue medication. 5 advance dementia: Alzheimer-type patient was on Exelon 3 mg twice a day no major change. 6 hyperlipidemia: Remain on atorvastatin 40 mg a day. 7 congestive heart failure systolic dysfunction with mild diastolic component mostly chronic with acute component continue metoprolol lisinopril furosemide and spironolactone. 8 chronic kidney disease stage III with acute kidney injury continue BUN/creatinine daily basis continue medical management. 9 severe GERD/GI prophylaxis: Continue patient on on omeprazole 40 mg daily. After heart catheter with the angiogram site shows no bleed patient is doing very well no blockage require any angioplasty patient be discharged home today with medical management. Plan - Discharge Summary Discharge Rx Participant: Yes New Discharge Prescriptions: New Nitroglycerin Sl Tabs [Nitrostat] 0.4 mg SUBLINGUAL Q5M PRN #0 tab PRN Reason: Chest Pain Ranolazine [Ranexa] 500 mg PO Q12HR tab.er.12h Continue Aspirin [Adult Low Dose Aspirin EC] 81 mg PO DAILY Isosorbide Mononitrate ER [Imdur] 30 mg PO DAILY Atorvastatin [Lipitor] 40 mg PO HS #90 tab Clopidogrel [Plavix] 75 mg PO DAILY #90 tab Tamsulosin [Flomax] 0.4 mg PO HS #0 Metoprolol Succinate (ER) [Toprol XL] 25 mg PO HS Spironolactone [Aldactone] 25 mg PO DAILY #30 tab Esomeprazole Magnesium [NexIUM] 40 mg PO DAILY Rivastigmine Tartrate [Exelon] 3 mg PO BID Lisinopril [Zestril] 5 mg PO HS Discontinued Nitroglycerin Sl Tabs [Nitrostat] 0.4 mg SUBLINGUAL Q5M PRN #25 tab PRN Reason: Chest Pain Discharge Medication List Aspirin [Adult Low Dose Aspirin EC] 81 mg PO DAILY 12/30/17 [History] Isosorbide Mononitrate ER [Imdur] 30 mg PO DAILY 01/27/18 [History] Atorvastatin [Lipitor] 40 mg PO HS #90 tab 01/28/18 [Rx] Clopidogrel [Plavix] 75 mg PO DAILY #90 tab 08/23/18 [Rx] Tamsulosin [Flomax] 0.4 mg PO HS #0 01/28/18 [Rx] Metoprolol Succinate (ER) [Toprol XL] 25 mg PO HS 06/29/18 [History] Spironolactone [Aldactone] 25 mg PO DAILY #30 tab 07/01/18 [Rx] Esomeprazole Magnesium [NexIUM] 40 mg PO DAILY 09/26/18 [History] Rivastigmine Tartrate [Exelon] 3 mg PO BID 09/27/18 [History] Lisinopril [Zestril] 5 mg PO HS 10/25/18 [History] Nitroglycerin Sl Tabs [Nitrostat] 0.4 mg SUBLINGUAL Q5M PRN #0 tab 10/26/18 [Rx] Ranolazine [Ranexa] 500 mg PO Q12HR tab.er.12h 10/26/18 [Rx] Follow up Appointment(s)/Referral(s): Tin Triplett MD [STAFF PHYSICIAN] - 1 Week (Office will call with follow up appointment, next ThursdayNovember 03 is being checked with Dr. Triplett.) Khurram Mustafa MD [Primary Care Provider] - 11/05/18 (Please keep follow up appointment for November 05, [place] per Dr. Mustafa.) Patient Instructions/Handouts: *Surgery [facility] - After Heart Catheterization - Inspector Firearms Instructions Discharge Disposition: HOME SELF-CARE
--- NOTE | 2018-10-26 14:25 | P.PN ---
Subjective Progress Note Date: 10/26/18 This is an 83-year-old gentleman who follows with Dr. Dajuan Triplett in the office. He has a known history of coronary artery disease with prior myocardial infarctions and stent placements, most recently a few weeks ago patient was in the hospital with chest pain and elevated troponins, refused to undergo cardiac catheterization at that time. On this admission however the patient consented to undergoing cardiac catheterization. Medical therapy was advised the following the procedure. He does have a known history of hypertension, hyperlipidemia, chronic renal disease, abdominal aortic aneurysm, PAD, and dementia. Patient was seen and examined this morning, denied any chest pain or difficulty in breathing, family are at bedside. Blood pressure 126/58 with a heart rate in the 60s. White blood cell count 11.3, hemoglobin 11.7, platelet count 146. Sodium 143, potassium 4.4, BUN 43 and creatinine 1.4. Objective - Vital Signs Vital signs: Vital Signs Temp 97.5 F L 10/26/18 08:30 Pulse 57 L 10/26/18 08:30 Resp 18 10/26/18 08:30 BP 126/59 10/26/18 08:30 Pulse Ox 100 10/26/18 08:30 Intake & Output 10/25/18 10/26/18 10/26/18 18:59 06:59 18:59 Intake Total 642.391 995 480 Output Total 0 1000 Balance 642.391 -5 480 Weight 53.2 kg Intake: IV 590 75 normal saline 530 75 Intake, IV Titration 52.391 920 Amount Heparin Sod,Pork in 0.45% 52.391 NaCl 25,000 unit In 0.45 % NaCl 1 250ml.bag @ 12 UNITS/KG/HR 6.804 mls/hr IV .Q24H CATHLEEN Rx#: [id number] Sodium Chloride 0.9% 1, 920 000 ml @ 75 mls/hr IV . [id number] CATHLEEN Rx#:[id number] Oral 480 Output: Urine 0 1000 Uretheral (Myrick) 1000 Other: Voiding Method Bedside Commode Urinal Urinal Self-Catheterization Self-Catheterization Self-Catheterization # Voids 1 5 1 - Exam General Appearance: Alert, cooperative, no distress, appears stated age. S ignificantly confused Neck HEENT: Supple, no lymphadenopathy, no thyroid enlargement, no carotid bru its. Lungs: Clear to auscultation without crackles or wheezes no rhonchi, no deformity. Chest Wall: Chest wall normal expansion with deep inspiration no tenderness and no deformity was found on exam, no costochondral pain or discomfort. Heart: Irregular rate and rhythm, S1, S2 positive S3 positive systolic murmur. no rub or gallop. Back: Symmetric, no curvature, ROM normal, no CVA tenderness. Abdomen: Soft, non-tender, bowel sounds active all four quadrants, no masses, no organomegaly. Extremities: Extremities normal, atraumatic, no cyanosis or edema. Pulses: 2+ and symmetric. Skin: Skin color, texture, tugor normal, no rashes or lesions. Neurologic: Alert oriented x2 cranial nerves II through XII intact, no motor deficit, no abnormal balance or gait. Severe confusion with - Labs CBC & Chem 7: 10/26/18 05:38 10/26/18 05:38 Labs: Abnormal Lab Results - Last 24 Hours (Table) 10/25/18 10/26/18 10/26/18 Range/Units 13:19 05:38 05:38 WBC (3.8-10.6) k/uL RBC (4.30-5.90) m/uL Hgb (13.0-17.5) gm/dL Hct (39.0-53.0) % Plt Count (150-450) k/uL Neutrophils # (1.3-7.7) k/uL Chloride 111 H (98-107) mmol/L BUN 43 H (9-20) mg/dL Creatinine 1.49 H (0.66-1.25) mg/dL Troponin I 2.750 H* 1.440 H* (0.000-0.034) ng/mL 10/26/18 Range/Units 05:38 WBC 11.3 H (3.8-10.6) k/uL RBC 3.66 L (4.30-5.90) m/uL Hgb 11.7 L (13.0-17.5) gm/dL Hct 35.4 L (39.0-53.0) % Plt Count 146 L (150-450) k/uL Neutrophils # 9.3 H (1.3-7.7) k/uL Chloride (98-107) mmol/L BUN (9-20) mg/dL Creatinine (0.66-1.25) mg/dL Troponin I (0.000-0.034) ng/mL Assessment and Plan Plan: Assessment and plan #1 acute coronary syndrome, status post cardiac catheterization, medical therapy advised #2 GERD #3 advanced coronary disease: With multiple angioplasty and stent placement in the past with bypass surgery back in 95 patient is still symptomatic medically despite the last 2 angioplasty and stent placement with Dr. Triplett the last few weeks. #4 cardiomyopathy, ischemic #5 advance dementia #6 hyperlipidemia #7 congestive heart failure systolic dysfunction chronic with acute component #8 chronic kidney disease stage III with acute kidney injury continue BUN/c reatinine daily basis continue medical management. Plan Cardiology's perspective, patient may be able to be discharged home today. He will have a follow-up appointment to see Dr. JAN Triplett in the office post discharge. DNP note has been reviewed, I agree with a documented findings and plan of care. Patient was seen and examined.
== END 2018-10-26 13:18 | disposition home or self-care (01) | DRG 280 ==
LOC: EC 06:52 → 2SICU 08:31 → 3SCARD 18:23
PROVIDERS: ADMIT Internal Medicine Geriatric Medicine; ATTEND Internal Medicine Geriatric Medicine
PROC: B2111ZZ Fluoroscopy of Multiple Coronary Arteries using Low Osmolar Contrast (ICD-10-PCS; 2018-10-25)
PROC: B2131ZZ Fluoroscopy of Multiple Coronary Artery Bypass Grafts using Low Osmolar Contrast (ICD-10-PCS; 2018-10-25)
PROC: 4A023N7 Measurement of Cardiac Sampling and Pressure, Left Heart, Percutaneous Approach (ICD-10-PCS; principal; 2018-10-25 18:21)
DX: I21.4 Non-ST elevation (NSTEMI) myocardial infarction (principal); I50.23 Acute on chronic systolic (congestive) heart failure; I13.0 Hypertensive heart and chronic kidney disease with heart failure and stage 1 through stage 4 chronic kidney disease, or unspecified chronic kidney disease; N17.9 Acute kidney failure, unspecified; I25.5 Ischemic cardiomyopathy; F02.80 Dementia in other diseases classified elsewhere, unspecified severity, without behavioral disturbance, psychotic disturbance, mood disturbance, and anxiety; G30.9 Alzheimer's disease, unspecified; D64.9 Anemia, unspecified; I73.9 Peripheral vascular disease, unspecified; N18.3 Chronic kidney disease, stage 3 (moderate); E78.00 Pure hypercholesterolemia, unspecified; E78.5 Hyperlipidemia, unspecified; I25.10 Atherosclerotic heart disease of native coronary artery without angina pectoris; I25.2 Old myocardial infarction; K21.9 Gastro-esophageal reflux disease without esophagitis; F32.9 Major depressive disorder, single episode, unspecified; I71.4 Abdominal aortic aneurysm, without rupture; N40.0 Benign prostatic hyperplasia without lower urinary tract symptoms; Z79.02 Long term (current) use of antithrombotics/antiplatelets; Z79.82 Long term (current) use of aspirin; Z79.899 Other long term (current) drug therapy; Z88.0 Allergy status to penicillin; Z95.1 Presence of aortocoronary bypass graft; Z95.5 Presence of coronary angioplasty implant and graft; Z90.79 Acquired absence of other genital organ(s); Z83.3 Family history of diabetes mellitus
CPT/HCPCS: 36415; 71046; 80048; 80053; 80061; 83735; 84484; 85025; 85610; 85730; 93458; 96374; 99291